=== PATIENT | female | born 1995 | race Caucasian/White ===

== ENCOUNTER 2022-12-14 11:03 | Emergency (ER) | payer OTHER, SELFPAY ==
[2022-12-14 11:04] VITALS: BP 131/86; PULSE 104; RESP 14; TEMP 36.6; O2SAT 100; BMI 25.9
--- NOTE | 2022-12-14 11:25 | CT_ITS ---
STUDY: CT ABDOMEN AND PELVIS WITH CONTRAST REASON FOR EXAM: Female, 27 years old. Abdominal pain RADIATION DOSAGE (If Supplied By Facility): CTDIvol = ( 9.53 ) mGy, DLP = ( 592.82 ) mGycm TECHNIQUE: Transaxial images were obtained through the abdomen and pelvis without oral contrast. 100 ml of Isovue-300 contrast was administered. Sagittal and coronal images were reconstructed. Individualized dose optimization techniques were used for this CT. COMPARISON: No relevant prior comparison study available FINDINGS: LOWER THORAX: The visualized lung bases are clear. The visualized portions of the heart and pericardium are within normal limits. GALLBLADDER / BILE DUCTS: There are no calcified gallstones present. There is no intrahepatic biliary duct dilatation. The common bile duct is normal in caliber. There are no calcified ductal stones. LIVER: The liver is within normal limits. There are no suspicious hepatic lesions. SPLEEN: The spleen is normal in size. PANCREAS: The pancreas is within normal limits. ADRENAL GLANDS: The adrenal glands are within normal limits. KIDNEYS / BLADDER: There is a 2 mm nonobstructing right renal collecting system stone. There are no additional urinary calculi. There is no hydronephrosis. There are no focal renal lesions. The urinary bladder is partially distended and appears grossly unremarkable. STOMACH / BOWEL: Normal visualized stomach. There is no bowel obstruction or inflammation. The appendix is visualized and appears normal. PERITONEUM/RETROPERITONEUM: There is no abdominal or pelvic free air, free fluid or fluid collection. There is no abnormal soft tissue mass identified. There is no abdominal or pelvic lymphadenopathy. VESSELS: The aorta is normal in caliber. The IVC is unremarkable. BONES: There are no destructive osseous lesions. SOFT TISSUES: The visualized soft tissues are within normal limits. CT/Abdomen/Pelvis W IV Cont ONLY IMPRESSION: 2 mm nonobstructing right renal collecting system stone. No additional urinary calculi. No hydronephrosis. No bowel obstruction or inflammation. Normal appendix. No free air, free fluid or fluid collection. Electronically Signed: Dragan Dennis MD at 12:46 EDT ,
[2022-12-14 11:43] LABS: Mucous, Urine 0 SEEN /hpf (<or=2+); Red Blood Cells-Urine 0 SEEN /hpf (0-5); White Blood Cells 0 SEEN /hpf (0-5)
[2022-12-14 11:45] LABS: Absolute Lymphocyte Count 2.26 X10^3/uL (0.83-4.51); Basophil# 0.05 X10^3/uL; Eosinophil# 0.04 X10^3/uL; Eosinophils% 0.8 % (0-5); Hematocrit 43.6 % (37-47); Hemoglobin 14.7 g/dL (12.0-15.0); Lymphocyte # 2.26 X10^3/ul (0.83-4.51); Lymphocyte % 45.2 % (19-41); Mean Corp Hgb Conc 33.7 g/dL (32-36); Mean Corpuscular Hgb 31.1 pg (27.0-32.0); Mean Corpuscular Volume 92.2 fL (81-99); Mean Platelet Vol. 10.9 fl (6.2-12.0); Monocyte# 0.64 X10^3/uL; Monocyte% 12.8 % (0-10); NRBC Flagged by Analyzer 0 % (0-5); Platelet Count 319 K/mm3 (150-450); RBC Distribution Width CV 11.1 % (11.6-14.6); RBC Distribution Width SD 37.8 fl (35.1-43.9); Red Blood Count 4.73 M/mm3 (4.2-5.4)
[2022-12-14] MEDS: Mag Hydrox/Al Hydrox/Simeth 30 ML UDC PO (11:48)
[2022-12-14] MEDS: 0.9% Normal Saline 1,000 ML 1000 ML IV (11:48)
[2022-12-14 11:49] LABS: Color, Urine Yellow (Yellow); Glucose, Dipstick Normal (Normal); Ketone-Dipstick Negative (Negative); Leukocyte Esterase-Dipstick Negative /ul (Negative); Nitrite-Dipstick Negative (Negative); Occult Blood-Urine 25 /ul (Negative); Protein-Dipstick Negative (Negative); Specific Gravity, Urine 1.005 (1.002-1.030); Urine Bilirubin Dipstick Negative (Negative); Urine Clarity Clear (Clear); Urine Urobilinogen Normal (Normal)
[2022-12-14 11:53] LABS: AST(SGOT) 21 U/L (15-37); Alanine Aminotransfer ALT/SGPT 25 U/L (13-56); Albumin, Serum 3.9 g/dL (3.2-5.0); Alkaline Phosphatase 66 U/L (45-117); Anion Gap 6 (5-15); BUN 11 mg/dL (7-18); Calcium,Total 9.2 mg/dL (8.5-10.1); Chloride 105 mmol/L (98-107); Creatinine, Serum 0.65 mg/dL (0.55-1.02); EST Glomerular Filtration Rate 118 mL/min (>60); Est Glom Filt Rate - Afr Amer 142 mL/min (>60); Estimated Creatinine Clearance 108.49 ml/min; Globulin 3.8 g/dL (2.2-4.2); Glucose 92 mg/dL (74-106); Lipase 21 U/L (13-75); Potassium 3.7 mmol/L (3.5-5.1); Protein, Total 7.7 g/dL (6.4-8.2); Sodium Level 137 mmol/L (136-145)
--- NOTE | 2022-12-14 11:59 | EDS_ITS ---
HPI <JOSE DANIEL Rocha - Last Filed: 12/14/22 12:58> History of Present Illness Chief Complaint: Abd Pain Narrative Narrative: Patient is a 27-year-old female with history of kidney disease who takes potassium citrate who presents to the emergency department with 2 days of epigastric pain, generalized abdominal pain. 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 Over the night, the patient continued to have pain, and it radiated to her lower abdomen. Patient states that this morning, she continues to have pain in her epigastric area as generalized pain. She denies any nausea or vomiting however does state to have increased bowel movements which is abnormal for her. She denies any fever or chills. Denies any sick contacts. Denies any recent antibiotic use. PFSH <JOSE DANIEL Rocha - Last Filed: 12/14/22 12:58> [facility] Medical History (Updated 12/14/22 @ 12:57 by JOSE DANIEL Rocha) Distal renal tubular acidosis Rheumatoid arthritis Home Medications famotidine 40 mg tablet (Pepcid) 40 mg PO BID #28 tabs 12/14/22 [Rx Last Taken Unknown] fluticasone propionate 50 mcg/actuation nasal spray,suspension 2 spray intranasal DAILY PRN allergy symptoms 12/14/22 [History Last Taken Unknown] potassium citrate PO 12/14/22 [History Last Taken Unknown] Allergy/AdvReac Type Severity Reaction Status Date / Time doxycycline Allergy Severe Anaphylaxis Verified 12/14/22 11:13 Penicillins Allergy Severe Anaphylaxis Verified 12/14/22 11:13 Social History Smoking Status: Never smoker ROS <JOSE DANIEL Rocha - Last Filed: 12/14/22 12:58> ROS ED ROS Narrative Constitutional: Negative for fever, chills, weight loss, weakness Eyes: Negative for vision loss, vision change, double vision ENT: Negative for any sore throat, ear pain, congestion Cardiovascular: Negative for any chest pain, tightness, palpitations Respiratory: Negative for any cough, sputum production, hemoptysis, dyspnea, dyspnea on exertion, orthopnea Gastrointestinal: Negative for any nausea, vomiting, diarrhea, constipation, blood in stool, blood in vomit. Positive for abdominal pain : Negative for any urinary frequency, dysuria, retention, blood in urine Muscle skeletal: Negative for any muscle joint pain, stiffness, myalgias, a rthralgias, neck pain, back pain Neurological: Negative for any headache, syncope, numbness or tingling, dizziness Skin: Negative for any rashes, lumps, itching, abrasions, lacerations Psychiatric: Negative for any depression, anxiety, stress, suicidal ideation, homicidal ideation Hematologic: Negative for any easy bruising, excessive bruising, easy bleeding Allergies: Negative for any eczema, hives, rash EXAM <JOSE DANIEL Rocha - Last Filed: 12/14/22 12:58> Physical Exam Narrative Exam Narrative: Vital signs reviewed. HEET: Head normocephalic atraumatic, TMs clear bilaterally. Posterior pharynx is clear, moist mucous membranes. Nares clear bilaterally. Neck: Supple with no lymphadenopathy or tenderness. No signs of meningismus, negative jolt sign. Cardiac: Regular rate and rhythm no murmurs gallops or rubs, equal peripheral pulses bilaterally. Respiratory: Lungs clear to auscultation bilaterally. No chest tenderness. Abdomen: Soft, nondistended. No abdominal bruit or pulsatile masses. No hepatosplenomegaly. Positive for pain to the left upper quadrant, right lower quadrant on palpation. No peritoneal signs. Active bowel sounds. Extremities: No peripheral edema, no signs of gross trauma or deformity. Active full range of motion of all extremities. Neuro: Cranial nerves II through XII intact, no focal neurological deficits. Skin: Clean dry and intact with no rash, purpura, petechiae, vesicles or pustules. Backs/flank: No CVA tenderness, no midline spinal tenderness, no deformity. Psych: Normal mood and affect. No SI, HI or acute psychosis. Const Vital Signs: 12/14/22 11:04 Temperature 98 F Temperature Source Temporal Pulse Rate 104 H Respiratory Rate 14 Blood Pressure 131/86 H Blood Pressure Mean 101 Pulse Ox 100 Oxygen Delivery Method Room Air Positive well nourished and well developed General Appearance ED: well developed <Dr. Surinder Camilo, DO - Last Filed: 12/14/22 13:10> Physical Exam Const Vital Signs: 12/14/22 11:04 Temperature 98 F Temperature Source Temporal Pulse Rate 104 H Respiratory Rate 14 Blood Pressure 131/86 H Blood Pressure Mean 101 Pulse Ox 100 Oxygen Delivery Method Room Air MDM <Davidson CummingsJOSE DANIEL - Last Filed: 12/14/22 12:58> [facility] Lab Data Labs: Laboratory Results - last 24 hr 12/14/22 12/14/22 11:30 11:35 WBC 5.0 RBC 4.73 Hgb 14.7 Hct 43.6 MCV 92.2 MCH 31.1 MCHC 33.7 RDW Std Deviation 37.8 RDW Coeff of Effie 11.1 L Plt Count 319 MPV 10.9 Immature Gran % (Auto) 0.200 Neut % (Auto) 40.0 L Lymph % (Auto) 45.2 H Mohave % (Auto) 12.8 H Eos % (Auto) 0.8 Baso % (Auto) 1.0 Absolute Neuts (auto) 2.0 Absolute Lymphs (auto) 2.26 Nucleated RBC % 0 Sodium 137 Potassium 3.7 Chloride 105 Carbon Dioxide 26.0 Anion Gap 6 BUN 11 Creatinine 0.65 Estim Creat Clear Calc 108.49 Est GFR (MDRD) Af Amer 142 Est GFR (MDRD) Non-Af 118 BUN/Creatinine Ratio 17.0 Glucose 92 Calcium 9.2 Total Bilirubin 0.60 AST 21 ALT 25 Alkaline Phosphatase 66 Total Protein 7.7 Albumin 3.9 Globulin 3.8 Albumin/Globulin Ratio 1.0 Lipase 21 Urine Color Yellow Urine Clarity Clear Urine pH 7.0 Ur Specific Winifred 1.005 Urine Protein Negative Urine Glucose (UA) Normal Urine Ketones Negative Urine Occult Blood 25 H Urine Nitrite Negative Urine Bilirubin Negative Urine Urobilinogen Normal Ur Leukocyte Esterase Negative Urine RBC 0 SEEN Urine WBC 0 SEEN Ur Squamous Epith Cells 0-5 SEEN Urine Bacteria 1+ Urine Mucus 0 SEEN Urine Test Negative Radiography Diagnostic Testing: Clinical Impression(s) from Imaging Studies Abdomen/Pelvis CT 12/14/22 11:25 IMPRESSION: 2 mm nonobstructing right renal collecting system stone. No additional urinary calculi. No hydronephrosis. No bowel obstruction or inflammation. Normal appendix. No free air, free fluid or fluid collection. Electronically Signed: Dragan Dennis MD at 12:46 EDT , Treatment and Re-Evaluation :: Patient appears generally well, patient appears nontoxic, vital signs are stable. Patient presents to the emergency department for concern of abdominal pain. Physical examination shows some pain on palpation. Patient received abd ominal work-up, labs, CT scan of the abdomen pelvis. Patient was given GI cocktail, as well as Toradol. Differential diagnosis includes acute pancreatitis, acute cholecystitis, appendicitis, gastritis, gastroenteritis. Patient looks nontoxic, no peritoneal signs. Patient appears generally well, patient's labs were gross unremarkable, negative lipase. No transaminitis. Patient's urinalysis negative for infection, patient is not . Patient's abdomen pelvis CT scan shows a 2 mm nonobstructing right renal collecting system stone. No additional urinary calculi. No hydronephrosis. No bowel obstruction or inflammation, no appendicitis. No free fluid or free fluid collection. At this time, this is a negative examination. Patient likely suffering from gastritis. Patient will be placed on Pepcid for 2 weeks. She is instructed to decrease any spicy foods. She will follow-up outpatient as needed. All questions answered, patient stable for discharge <Dr. Surinder Camilo, DO - Last Filed: 12/14/22 13:10> [facility] Narrative Medical decision making narrative: I have personally performed a face to face assessment of the patient and have reviewed the AURE Note. I performed a substantive portion of the visit including all aspects of the following. My moe findings include: History: Patient presents with abdominal pain that began yesterday. Patient states she was at work and she bent over. Patient states that when she stood up she felt some pain in her epigastric area. Patient states that later last evening moved to her right lower abdomen. Patient states that today when she woke up her pain was back in the epigastric area and upper abdomen. Patient denies any nausea or vomiting. Patient denies any fevers or chills. Patient denies any diarrhea or constipation. Exam: Vital signs are stable. Patient is afebrile. Patient is in no acute distress. Oral mucosa is pink and moist. Neck is supple. Trachea is midline. There is no JVD. Heart was regular rate and rhythm. Lungs are clear and equal bilaterally. Abdomen is soft. Bowel sounds are normal. There are some mild tenderness over the epigastric area. There is no rebound or guarding noted. There is no tenderness over the right lower quadrant. There is no McBurney's point tenderness. Cranial nerves II through XII are intact. There are no focal motor or sensory deficits noted. Medical Decision Making: Differential diagnosis includes gastritis, peptic ulcer disease, colitis, pancreatitis, appendicitis, urinary tract infection, , and pyelonephritis. CBC will be obtained to assess for leukocytosis and anemia. Comprehensive metabolic profile will be obtained to assess for hepatic function, renal function, and electrolyte abnormality. Urinalysis will be obtained to assess for urinary tract infection and hematuria. Lipase will be obtained to assess for pancreatitis. Urine hCG will be obtained to assess for . CT scan of the abdomen pelvis will be obtained to assess for bowel obstruction, perforation, and appendicitis. Patient was given IV fluids. Patient was given a GI cocktail. CBC was reviewed and was within normal limits. Comprehensive Bolick profile was reviewed and was within normal limits. Lipase was reviewed and was normal. Urinalysis was reviewed. There is no evidence of urinary tract infection or hematuria. Urine hCG was reviewed and was negative. CT scan of the abdomen and pelvis was obtained. There is a 2 mm right renal calculus but there is no ureteral calculus noted. There is no evidence of obstruction. There is no free air or free fluid noted. The appendix was visualized and is normal. This was interpreted by the radiologist and was also independently reviewed by myself. Patient was feeling better on reevaluation. Patient was advised of her findings. Patient was instructed to drink plenty of fluids. Patient was given a prescription for Pepcid. Patient was instructed to follow-up with her primary care physician in 5 to 7 days. Patient was instructed to take Tylenol as needed for pain. Patient understood and was agreeable with plan. All questions were answered. Lab Data Labs: Laboratory Results - last 24 hr 12/14/22 12/14/22 11:30 11:35 WBC 5.0 RBC 4.73 Hgb 14.7 Hct 43.6 MCV 92.2 MCH 31.1 MCHC 33.7 RDW Std Deviation 37.8 RDW Coeff of Effie 11.1 L Plt Count 319 MPV 10.9 Immature Gran % (Auto) 0.200 Neut % (Auto) 40.0 L Lymph % (Auto) 45.2 H Mohave % (Auto) 12.8 H Eos % (Auto) 0.8 Baso % (Auto) 1.0 Absolute Neuts (auto) 2.0 Absolute Lymphs (auto) 2.26 Nucleated RBC % 0 Sodium 137 Potassium 3.7 Chloride 105 Carbon Dioxide 26.0 Anion Gap 6 BUN 11 Creatinine 0.65 Estim Creat Clear Calc 108.49 Est GFR (MDRD) Af Amer 142 Est GFR (MDRD) Non-Af 118 BUN/Creatinine Ratio 17.0 Glucose 92 Calcium 9.2 Total Bilirubin 0.60 AST 21 ALT 25 Alkaline Phosphatase 66 Total Protein 7.7 Albumin 3.9 Globulin 3.8 Albumin/Globulin Ratio 1.0 Lipase 21 Urine Color Yellow Urine Clarity Clear Urine pH 7.0 Ur Specific Winifred 1.005 Urine Protein Negative Urine Glucose (UA) Normal Urine Ketones Negative Urine Occult Blood 25 H Urine Nitrite Negative Urine Bilirubin Negative Urine Urobilinogen Normal Ur Leukocyte Esterase Negative Urine RBC 0 SEEN Urine WBC 0 SEEN Ur Squamous Epith Cells 0-5 SEEN Urine Bacteria 1+ Urine Mucus 0 SEEN Urine Test Negative Radiography Diagnostic Testing: Clinical Impression(s) from Imaging Studies Abdomen/Pelvis CT 12/14/22 11:25 IMPRESSION: 2 mm nonobstructing right renal collecting system stone. No additional urinary calculi. No hydronephrosis. No bowel obstruction or inflammation. Normal appendix. No free air, free fluid or fluid collection. Electronically Signed: Dragan Dennis MD at 12:46 EDT , Discharge Plan Triage Chief Complaint: Abd Pain ED Midlevel Provider: Davidson Cummings ED Provider: Surinder Camilo Dx/Rx/DC Orders Clinical Impression: Gastritis, Abdominal pain Instructions: Abdominal Pain, ED Gastritis (Adult) Prescriptions: New famotidine [Pepcid] 40 mg tablet 40 mg PO BID Qty: 28 0RF No Action potassium citrate PO fluticasone propionate 50 mcg/actuation spray,suspension 2 spray intranasal DAILY PRN (Reason: allergy symptoms) Rx Instructions: administer into each nostril Activity Restrictions/Additional Instructions: Please follow-up outpatient. Disposition Disposition: Home, Self Care
[2022-12-14 12:02] LABS: Bacteria 1+ /hpf (None Seen); Internal QC Validated? YES +Cl - CLEAR BKGD; Pregnancy, Urine Negative Negative; Squamous Epithelial Cells - UA 0-5 SEEN /hpf (5-10)
== END 2022-12-14 13:15 | disposition home or self-care (01) ==
PROVIDERS: Nurse Practitioner; Emergency Provider Emergency Medicine; Visit Provider Emergency Medicine
DX: R10.9 Unspecified abdominal pain (principal); K29.70 Gastritis, unspecified, without bleeding; N28.9 Disorder of kidney and ureter, unspecified; Z79.899 Other long term (current) drug therapy
CPT/HCPCS: 74177; 80053; 81001; 81025; 83690; 85025; 96360; 99284; J7030; Q9967; A4216

== ENCOUNTER → 2024-11-03 | Outpatient (CLI) | payer OTHER, SELFPAY ==
--- NOTE | 2024-11-03 12:29 | MRI_ITS ---
PROCEDURE: BRAIN W/WO CONTRAST 11/03/2024 REASON FOR EXAM: DIZZINESS TECHNIQUE: BRAIN W/WO CONTRAST Multiplanar and multisequence images were obtained. CONTRAST: Clariscan VOLUME: 15 mL COMPARISON: None FINDINGS: No diffusion restriction to suggest acute/subacute ischemia. No evidence of acute intracranial hemorrhage, midline shift or mass effect. Cerebral volume is maintained. No hydrocephalus. No parenchymal signal abnormalities. No cerebellopontine angle mass. 7th, 8th and 5th cranial nerve complexes are within normal limits. No pathologic enhancement. Minimal bilateral maxillary mucosal thickening. Globes are intact. MRI/Brain W/WO Contrast IMPRESSION: Normal brain MRI. Reading Location: [facility]
--- NOTE | 2024-11-03 12:29 | MRI_ITS ---
PROCEDURE: BRAIN W/WO CONTRAST 11/03/2024 REASON FOR EXAM: DIZZINESS TECHNIQUE: BRAIN W/WO CONTRAST Multiplanar and multisequence images were obtained. CONTRAST: Clariscan VOLUME: 15 mL COMPARISON: None FINDINGS: No diffusion restriction to suggest acute/subacute ischemia. No evidence of acute intracranial hemorrhage, midline shift or mass effect. Cerebral volume is maintained. No hydrocephalus. No parenchymal signal abnormalities. No cerebellopontine angle mass. 7th, 8th and 5th cranial nerve complexes are within normal limits. No pathologic enhancement. Minimal bilateral maxillary mucosal thickening. Globes are intact. MRI/Brain W/WO Contrast IMPRESSION: Normal brain MRI. Reading Location: [facility]
== END | disposition home or self-care (01) ==
PROVIDERS: Referring Provider Otolaryngology; Visit Provider Otolaryngology
DX: R42 Dizziness and giddiness (principal)
CPT/HCPCS: 70553; A9575

== ENCOUNTER 2024-11-27 03:51 | Emergency (ER) | payer OTHER, SELFPAY ==
[2024-11-27 03:53] VITALS: BP 134/92; PULSE 140; RESP 16; TEMP 36.6; O2SAT 97; BMI 26.9
[2024-11-27 04:09] VITALS: PULSE 116
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
[2024-11-27 04:20] VITALS: BP 104/75; PULSE 104; RESP 16; TEMP 36.6; O2SAT 99
--- OUTSIDE RECORDS SUMMARY | 2024-11-27 04:28 | XMS RPT_ITS | CCD ---
Author Organization [facility] Care Team Providers Care Nut Tightener Name Role Phone Unavailable Primary Care Provider DIOGENES Redding Attending Unavailable DIOGENES AVENDAÑO Primary Care Unavailable DIOGENES AVENDAÑO Attending Unavailable DIOGENES AVENDAÑO Primary Care Unavailable Unavailable Primary Care Provider Joseline AVENDAÑO MD, DIOGENES Holloway Primary Care Physician [phone] DIOGENES AVENDAÑO MD Attending Unavailable KATERYNA BLACKWELL, DIOGENES Holloway Primary Care Unavailable Monica BLACKWELL, Dr. Bell Attending Provider Dr. Ray Anderson MD Referring Provider DIOGENES AVENDAÑO Primary Care Provider [phone] KOURTNEY DE LA CRUZ Primary Care Unavailable Ray Anderson Referring Ray Chauhan Attending Joseline butcher Allergies Allergy Classification Reported Allergen(s) Allergy Type Date of Onset Reaction(s) Facility (8 sources) Doxycycline; Translations: [DOXYCYCLINE] Drug Allergy 7 Other: See Comments [facility] (3 sources) Penicillins; Translations: [PENICILLINS] Allergy to substance 6 Anaphylaxis [facility] (5 sources) Penicillins Propensity to adverse reactions to drug 6 Unknown [facility] (1 source) Penicillin; Translations: [penicillin] Drug Allergy [facility] (1 source) Doxycycline Drug Allergy 3 [facility] (1 source) Penicillins Drug allergy (disorder) 3 [facility] Medications Current Medications Medication Drug Class(es) Dates Sig (Normalized) Sig (Original) escitalopram 5 mg oral tablet (1 source) Serotonin Reuptake Inhibitor Start: 09-21-2024 End: 11-20-2024 Lexapro 5 mg oral tablet Dose : 5 mg = 1 tab(s), Oral, qDay, # 30 tab(s), 1 Refill(s), Pharmacy: [facility]/pharmacy #[id number], 162.6, cm, 09/21/24 14:14:00 EDT, Height, kg, 09/21/24 14:14:00 EDT, Dosing Weight Start Date: 09/21/24 Stop Date: 11/20/24 Status: Ordered Quantity: 30.0 Unit: tab(s) Repeat number: 2 Ethinyl Estradiol / Norethindrone (5 sources) Estrogen Start: 05-20-2023 take 1 tablet by mouth once daily .09/17, 21, 1.5-30 mg-mcg TAKE 1 TABLET BY MOUTH EVERY DAY CONTINUOUSLY *NO WEEK OFF* 05/20/2023 Active Start: 05-20-2023 take 1 tablet by stanley th once daily , 21, 1.5-30 mg-mcg TAKE 1 TABLET BY MOUTH EVERY DAY CONTINUOUSLY *NO WEEK OFF* 0 05/20/2023 Active Start: 12-28-2018 take 1 tablet by stanley th once daily .09/17 oral tablet tab(s), Oral, qDay, 0 Refill(s) Start Date: 12/28/18 Status: Ordered Repeat number: 1 Comment on above: TAKE 1 TABLET BY STANLEY TH EVERY DAY CONTINUOUSLY *NO WEEK OFF* famotidine 40 mg oral tablet (2 sources) Histamine-2 Receptor Antagonist Start: 12-15-19 take 1 tablet by mouth twice daily Famotidine (Pepcid) 40 mg tablet Active 40 mg PO TWICE A DAY 0 December 14, 2022 12:00am fluticasone propionate 0.05 mg/actuat metered dose nasal spray (3 sources) Corticosteroid Start: 09-02-19 End: 08-28-19 26 take 1 dose nasal route once daily in the morning Flonase 50 mcg/inh nasal spray Dose = 1 spray(s), Nostril, each, qAM, # 3 EA, 3 Refill(s), Pharmacy: [facility], 160, cm, 12/09/23 11:13:00 EDT, Height, kg, 12/09/23 11:13:00 EDT, Dosing Weight Start Date: 09/01/24 Stop Date: 08/27/25 Status: Ordered Quantity: 3.0 Unit: EA Repeat number: 4 Start: 12-14-2022 Fluticasone Pr opionate 50 mcg/actuation spray,suspension Active 2 NMA INTRANASAL DAILY as needed for allergy symptoms December 14, 2022 12:00am administer into each nostril Start: 12-14-2022 take 1 spray(s) nasa l route once daily Fluticasone Propionate Active 2 SPRAY INTRANASAL DAILY December 14, 2022 12:00am administer into each nostril folic acid 1 mg oral tablet (5 sources) Start: 06-28-2016 take 1 tablet by mouth once daily folic acid 1 mg tablet Take 1 tablet by mouth once daily. 90 tablet 06/28/2016 Active Comment on above: Take 1 tablet by [facility] once daily. lisdexamfetamine dimesylate 30 mg oral capsule (5 sources) Central Nervous System Stimulant lisdexamfetamine (VYVANSE) 30 mg capsule Take 40 mg by mouth once daily. Active Comment on above: Take 40 mg by mouth once daily. methotrexate 2.5 mg oral tablet (5 sources) Folate Analog Metabolic Inhibitor Start: 06-28-2016 take 8 tablets by mouth every week methotrexate 2.5 mg tablet Take 8 tablets by mouth once each week. 96 tablet 06/28/2016 Active Comment on above: Take 8 tablets by [facility] once each week. potassium citrate 10 meq extended release oral tablet (7 sources) Start: 09-01-2024 End: 08-27-2025 potassium citrate 10 mEq oral tablet, extended release Dose : 20 mEq = 2 tab(s), Oral, qDay, # 180 tab(s), 3 Refill(s), Pharmacy: [facility], 160, cm, 12/09/23 11:13:00 EDT, Height, kg, 12/09/23 11:13:00 EDT, Dosing Weight Start Date: 09/01/24 Stop Date: 08/27/25 Status: Ordered Quantity: 180.0 Unit: tab(s) Repeat number: 4 Start: 05-09-2023 take 2 tablets by mouth once p otassium citrate ER (UROCIT-K) 10 mEq (1,080 mg) Take 2 tablets by mouth every afternoon. 05/09/2023 Active Start: 12-14-2022 potassium citr ate Active PO December 14, 2022 12:00am Comment on above: Take 2 tablets by mo [facility] every afternoon. Completed/Discontinued Medications Medication Drug Class(es) Dates Sig (Normalized) Sig (Original) hydroxychloroquine sulfate 200 mg oral tablet (10 sources) Antimalarial, Antirheumatic Agent Start: 7 take 1 tablet by mouth twice daily hydroxychloroquine (PLAQUENIL) 200 mg tablet Take 1 tablet by mouth twice daily. 180 tablet 0 06/28/2016 Active Comment on above: Take 200 mg by mouth twice daily. Take 1 tablet by stanley twice daily. Problems Active Problems Problem Classification Problem Date Documented Date Episodic/Chronic Abdominal pain (3 sources) Abdominal pain; Translations: [Unspecified abdominal pain] 12-14-2022 Episodic Anxiety disorders (1 source) Posttraumatic stress disorder 09-21-2024 Chronic Calculus of urinary tract (1 source) Kidney stone 12-28-2018 Episodic Conditions associated with dizziness or vertigo (2 sources) Dizziness; Translations: [Dizziness and giddiness] Onset: 11-08-2024 12-07-2023 Episodic Gastritis and duodenitis (2 sources) Gastritis; Translations: [Gastritis, unspecified, without bleeding] 12-14-2022 Episodic Immunizations and screening for infectious disease (5 sources) Anti-nuclear factor positive; Translations: [Other specified abnormal immunological findings in serum] 12-01-2015 Episodic Mood disorders (1 source) Depressive disorder 09-21-2024 Chronic Other aftercare (5 sources) jail methotrexate user; Translations: [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] 12-01-2015 Episodic Other diseases of kidney and ureters (2 sources) 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; Translations: [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] Onset: 02-28-2023 Chronic Other diseases of kidney and ureters (1 source) 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 Other non-traumatic joint disorders (5 sources) Hand joint pain; Translations: [Pain in joints of unspecified hand] 12-01-2015 Episodic Other upper respiratory infections (3 sources) Acute upper respiratory infection; Translations: [Acute upper respiratory infection, unspecified] 06-05-2023 Episodic Rheumatoid arthritis and related disease (11 sources) Rheumatoid arthritis; Translations: [Rheumatoid arthritis, unspecified] 12-01-2015 Chronic Past or Other Problems Problem Classification Problem Date Documented Da te Episodic/Chronic Cardiac dysrhythmias (2 sources) Palpitations; Translations: [Palpitations] Onset: 02-28-2023 Episodic Results Test Name Value Interpretation Reference Range Facility Brain W/WO Contraston 2024 Brain W/WO Contrast [facility] Imaging Services [address] [place] [address] Brain W/WO Contrast MR#: [id number] Acct: [id number] Name: HOA SOFIA Rep #: [id number] : 1995 F 29 From: Luis Armando Thompson PCP: DIOGENES AVENDAÑO Status: REG CLI Study: Brain W/WO Contrast Date of Exam: 11/03/24 Exam# [id number] Ordering Dr: Ray Anderson MD PROCEDURE: BRAIN W/WO CONTRAST 11/03/2024 REASON FOR EXAM: DIZZINESS TECHNIQUE: BRAIN W/WO CONTRAST Multiplanar and multisequence images were obtained. CONTRAST: Clariscan VOLUME: 15 mL COMPARISON: None FINDINGS: No diffusion restriction to suggest acute/subacute ischemia. No evidence of acute intracranial hemorrhage, midline shift or mass effect. Cerebral volume is maintained. No hydrocephalus. No parenchymal signal abnormalities. No cerebellopontine angle mass. 7th, 8th and 5th cranial nerve complexes are within normal limits. No pathologic enhancement. Minimal bilateral maxillary mucosal thickening. Globes are intact. MRI/Brain W/WO Contrast IMPRESSION: Normal brain MRI. Reading Location: [facility] CC: Dr. Ray Anderson MD; DIOGENES AVENDAÑO Quality Head: Signed Normal [facility] Magnetic resonance imaging r eportOrdered By: Luis Armando Floyd on 11-03-2024 Study report [facility] Imaging Services [address] [place] [address] Brain W/WO Contrast MR#: [id number] Acct: [id number] Name: HOA SOFIA Rep #: [id number] : 1995 F 29 From: Murray Floyd DO PCP: DIOGENES AVENDAÑO Status: REG CLI Study:Brain W/WO Contrast Date of Exam: 11/03/24 Exam# [id number] Ordering Dr: Ray Anderson MD PROCEDURE: BRAIN W/WO CONTRAST 11/03/2024 REASON FOR EXAM: DIZZINESS TECHNIQUE: BRAIN W/WO CONTRAST Multiplanar and multisequence images were obtained. CONTRAST: Clariscan VOLUME: 15 mL COMPARISON: None FINDINGS: No diffusion restriction to suggest acute/subacute ischemia. No evidence of acute intracranial hemorrhage, midline shift or mass effect. Cerebral volume is maintained. No hydrocephalus. No parenchymal signal abnormalities. No cerebellopontine angle mass. 7th, 8th and 5th cranial nerve complexes are within normal limits. No pathologic enhancement. Minimal bilateral maxillary mucosal thickening. Globes are intact. MRI/Brain W/WO Contrast IMPRESSION: Normal brain MRI. Reading Location: [facility] CC: Dr. Ray Anderson MD; DIOGENES AVENDAÑO ~ Quality Head: Signed [facility] .Auto Diffon 09-23-2024 Basophil, Absolute 0.0 10 3/mcL Normal 0.0-0.3 [facility] Comment on above: Performed By: #### A DIFF, CMP, CBC, GFR, LIPID, ANEU, TSH #### [address] [address] Basophils/100 WBC (Bld) 0.8 % Normal 0.0-2.5 [facility] Comment on above: Performed By: #### A DIFF, CMP, CBC, GFR, LIPID, ANEU, TSH #### [address] [address] Eosinophil, Absolute 0.0 10 3/mcL Normal 0.0-0.7 [facility] Comment on above: Performed By: #### A DIFF, CMP, CBC, GFR, LIPID, ANEU, TSH #### [address] [address] Eosinophils/100 WBC (Bld) 0.7 % Normal 0.0-6.0 [facility] Comment on above: Performed By: #### A DIFF, CMP, CBC, GFR, LIPID, ANEU, TSH #### [address] [address] Lymphocyte, Absolute 2.7 10 3/mcL Normal 0.9-4.3 [facility] Comment on above: Performed By: #### A DIFF, CMP, CBC, GFR, LIPID, ANEU, TSH #### [address] [address] Lymphocytes/100 WBC (Bld) 46.2 % High 20.0-40.0 [facility] Comment on above: Performed By: #### A DIFF, CMP, CBC, GFR, LIPID, ANEU, TSH #### [address] [address] Monocyte, Absolute 0.5 10 3/mcL Normal 0.1-1.4 [facility] Comment on above: Performed By: #### A DIFF, CMP, CBC, GFR, LIPID, ANEU, TSH #### [address] [address] Monocytes/100 WBC (Bld) 7.6 % Normal 2.0-13.0 [facility] Comment on above: Performed By: #### A DIFF, CMP, CBC, GFR, LIPID, ANEU, TSH #### [address] [address] Neutrophils/100 WBC (Bld) 44.7 % Low 50.0-75.0 [facility] Comment on above: Performed By: #### A DIFF, CMP, CBC, GFR, LIPID, ANEU, TSH #### [address] [address] .GFRon 09-23-2024 GFR/1.73 sq M.predicted among non-blacks MDRD (S/P/Bld) [Vol rate/Area] mL/min/{1.73_m2} Normal [facility] Comment on above: Result Comment: Stages of Chronic Kidney Disease (CKD) Stage Description eGFR(ml/min/1.73 sq.m.) CKD 1 Normal kidney function or >=90 normal kindney function with possible kidney damage (ex. Proteinuria) CKD 2 Kidney damage with mild loss 60-89 of kidney function CKD 3a Mild to moderate loss of kidney 45-59 function CKD 3b Moderate to severe loss of 30-44 of kindey function CKD 4 Severe loss of kidney function 15-29 CKD 5 Kidney failure <15 Note: (go live 2024) the eGFR calculation was updated to the 2020 CKD-EPI creatinine equation without a race factor to calculate the eGFR results. Performed By: #### A DIFF, CMP, CBC, GFR, LIPID, ANEU, TSH #### [place] [address] .NEUABSon 09-23-2024 Neutrophil, Absolute 2.7 10 3/mcL Normal 2.3-8.1 [facility] Comment on above: Performed By: #### A DIFF, CMP, CBC, GFR, LIPID, ANEU, TSH #### [place] [address] CBCon 09-23-2024 Erythrocyte distribution width (RBC) [Ratio] 12.1 % Normal 11.5-15.5 [facility] Comment on above: Performed By: #### A DIFF, CMP, CBC, GFR, LIPID, ANEU, TSH #### [place] [address] Hematocrit (Bld) [Volume fraction] 41.8 % Normal 34.0-46.0 [facility] Comment on above: Performed By: #### A DIFF, CMP, CBC, GFR, LIPID, ANEU, TSH #### [place] [address] Hgb 14.4 G/dL Normal 12.0-16.0 [facility] Comment on above: Performed By: #### A DIFF, CMP, CBC, GFR, LIPID, ANEU, TSH #### [place] [address] MCH (RBC) [Entitic mass] 31.3 pg Normal 27.0-33.0 [facility] Comment on above: Performed By: #### A DIFF, CMP, CBC, GFR, LIPID, ANEU, TSH #### [place] [address] MCHC 34.4 G/dL Normal 32.0-36.0 [facility] Comment on above: Performed By: #### A DIFF, CMP, CBC, GFR, LIPID, ANEU, TSH #### [address] [address] MCV (RBC) [Entitic vol] 91.0 fL Normal 80.0-99.0 [facility] Comment on above: Performed By: #### A DIFF, CMP, CBC, GFR, LIPID, ANEU, TSH #### [address] [address] Platelet 255 10 3/mcL Normal 150-450 [facility] Comment on above: Performed By: #### A DIFF, CMP, CBC, GFR, LIPID, ANEU, TSH #### [address] [address] Platelet mean volume (Bld) [Entitic vol] 9.5 fL Normal 6.6-10.5 [facility] Comment on above: Performed By: #### A DIFF, CMP, CBC, GFR, LIPID, ANEU, TSH #### [address] [address] RBC 4.59 10 6/mcL Normal 4.10-5.30 [facility] Comment on above: Performed By: #### A DIFF, CMP, CBC, GFR, LIPID, ANEU, TSH #### [address] [address] WBC 5.9 10 3/mcL Normal 4.5-10.8 [facility] Comment on above: Performed By: #### A DIFF, CMP, CBC, GFR, LIPID, ANEU, TSH #### [address] [address] CMPon 09-23-2024 Albumin Level 3.7 G/dL Normal 3.5-5.0 [facility] Comment on above: Performed By: #### A DIFF, CMP, CBC, GFR, LIPID, ANEU, TSH #### [address] [address] Albumin/Globulin [Mass ratio] 1.0 {ratio} Low 1.1-2.5 [facility] Comment on above: Performed By: #### A DIFF, CMP, CBC, GFR, LIPID, ANEU, TSH #### [address] [address] ALP [Catalytic activity/Vol] 65 U/L Normal 40-135 [facility] Comment on above: Performed By: #### A DIFF, CMP, CBC, GFR, LIPID, ANEU, TSH #### [place] [address] ALT [Catalytic activity/Vol] 19 U/L Normal 14-59 [facility] Comment on above: Performed By: #### A DIFF, CMP, CBC, GFR, LIPID, ANEU, TSH #### [place] [address] AST [Catalytic activity/Vol] 17 U/L Normal 10-40 [facility] Comment on above: Performed By: #### A DIFF, CMP, CBC, GFR, LIPID, ANEU, TSH #### [place] [address] Bili Total 0.4 mg/dL Normal 0.2-1.0 [facility] Comment on above: Result Comment: Use of this assay is not recommended for patients undergoing treatment with eltrombopag due to the potential for falsely elevated results. Performed By: #### A DIFF, CMP, CBC, GFR, LIPID, ANEU, TSH #### [address] [address] BUN/Creatinine Ratio 13 ratio Normal 7-27 [facility] Comment on above: Performed By: #### A DIFF, CMP, CBC, GFR, LIPID, ANEU, TSH #### [place] [address] Calcium [Mass/Vol] 9.0 mg/dL Normal 8.4-10.2 [facility] Comment on above: Performed By: #### A DIFF, CMP, CBC, GFR, LIPID, ANEU, TSH #### [address] [address] Chloride [Moles/Vol] 103 mmol/L Normal 98-107 [facility] Comment on above: Performed By: #### A DIFF, CMP, CBC, GFR, LIPID, ANEU, TSH #### [address] [address] CO2 [Moles/Vol] 24 mmol/L Normal 22-29 [facility] Comment on above: Performed By: #### A DIFF, CMP, CBC, GFR, LIPID, ANEU, TSH #### [address] [address] Creatinine [Mass/Vol] 0.60 mg/dL Normal 0.51-0.95 [facility] Comment on above: Performed By: #### A DIFF, CMP, CBC, GFR, LIPID, ANEU, TSH #### [address] [address] Electrolyte Balance 10.0 mEq/L Normal 4.0-15.0 [facility] Comment on above: Performed By: #### A DIFF, CMP, CBC, GFR, LIPID, ANEU, TSH #### [address] [address] Globulin 3.8 G/dL Normal 2.7-4.4 [facility] Comment on above: Performed By: #### A DIFF, CMP, CBC, GFR, LIPID, ANEU, TSH #### [address] [address] Glucose [Mass/Vol] 91 mg/dL Normal 70-105 [facility] Comment on above: Performed By: #### A DIFF, CMP, CBC, GFR, LIPID, ANEU, TSH #### [address] [address] Potassium [Moles/Vol] 4.6 mmol/L Normal 3.5-5.1 [facility] Comment on above: Performed By: #### A DIFF, CMP, CBC, GFR, LIPID, ANEU, TSH #### [place] [address] Sodium [Moles/Vol] 137 mmol/L Normal 136-145 [facility] Comment on above: Performed By: #### A DIFF, CMP, CBC, GFR, LIPID, ANEU, TSH #### [place] [address] [place], [place] [address] Total Protein 7.5 G/dL Normal 6.4-8.2 [facility] Comment on above: Performed By: #### A DIFF, CMP, CBC, GFR, LIPID, ANEU, TSH #### [place] [address] [place], [place] [address] Urea nitrogen [Mass/Vol] 8 mg/dL Normal 7-18 [facility] Comment on above: Performed By: #### A DIFF, CMP, CBC, GFR, LIPID, ANEU, TSH #### [place] [address] [place], [place] [address] LABORATORYOrdered By: SYSTEM SYSTEM on 09-23-2024 Albumin BCP dye [Mass/Vol] 3.7 G/dL Normal 3.5 - 5.0 G/dL AO ADM SS Albumin/Globulin [Mass ratio] 1.0 {ratio} Low 1.1 - 2.5 ratio AO ADM SS ALP [Catalytic activity/Vol] 65 U/L Normal 40 - 135 U/L AO ADM SS ALT With P-5'-P [Catalytic activity/Vol] 19 U/L Normal 14 - 59 U/L AO ADM SS AST With P-5'-P [Catalytic activity/Vol] 17 U/L Normal 10 - 40 U/L AO ADM SS Basophils (Bld) [#/Vol] 0.0 103/mcL Normal 0.0 - 0.3 10^3/mcL AO Workflow SS Basophils/100 WBC (Bld) 0.8 % Normal 0.0 - 2.5 % AO Workflow SS Bilirubin [Mass/Vol] 0.4 mg/dL Normal 0.2 - 1 .0 mg/dL AO ADM SS Comment on above: Interpretive Data: U se of this assay is not recommended for patients undergoing treatment with eltrombopag due to the potential for falsely elevated results. Calcium [Mass/Vol] 9.0 mg/dL Normal 8.4 - 10. 2 mg/dL AO ADM SS Chloride [Moles/Vol] 103 mmol/L Normal 98 - 10 7 mmol/L AO ADM SS CO2 [Moles/Vol] 24 mmol/L Normal 22 - 29 mmol/L AO ADM SS Creatinine [Mass/Vol] 0.60 mg/dL Normal 0.51 - 0.95 mg/dL AO ADM SS Electrolyte Balance 10.0 mEq/L Normal 4.0 - 15 .0 mEq/L AO ADM SS Eosinophil, Absolute 0.0 103/mcL Normal 0.0 - 0 .7 10^3/mcL AO Workflow SS Eosinophils/100 WBC (Bld) 0.7 % Normal 0.0 - 6.0 % AO Workflow SS Erythrocyte distribution width (RBC) [Ratio] 12.1 % Normal 11.5 - 15.5 % AO Workflow SS Estimated Glomerular Filtration Rate ml/min/1.73sqm Invalid Interpretation Code AO Chemistry S Comment on above: Interpretive Data: Stages of Chronic Kidney Disease (CKD) Stage Description eGFR(ml/min/1.73 sq.m.) CKD 1 Normal kidney function or >=90 normal kindney function with possible kidney damage (ex. Proteinuria) CKD 2 Kidney damage with mild loss 60-89 of kidney function CKD 3a Mild to moderate loss of kidney 45-59 function CKD 3b Moderate to severe loss of 30-44 of kindey function CKD 4 Severe loss of kidney function 15-29 CKD 5 Kidney failure <15 Note: (go live 2024) the eGFR calculation was updated to the 2020 CKD-EPI creatinine equation without a race factor to calculate the eGFR results. Globulin 3.8 G/dL Normal 2.7 - 4.4 G/dL AO ADM SS Glucose [Mass/Vol] 91 mg/dL Normal 70 - 105 mg/dL AO ADM SS Hematocrit (Bld) [Volume fraction] 41.8 % Normal 34.0 - 46.0 % AO Workflow SS Hemoglobin (Bld) [Mass/Vol] 14.4 G/dL Normal 12.0 - 16.0 G/dL AO Workflow SS Lymphocytes (Bld) [#/Vol] 2.7 103/mcL Normal 0.9 - 4.3 10^3/mcL AO Workflow SS Lymphocytes/100 WBC (Bld) 46.2 % High 20.0 - 40.0 % AO Workflow SS MCH (RBC) [Entitic mass] 31.3 pg Normal 27.0 - 33.0 pg AO Workflow SS MCHC 34.4 G/dL Normal 32.0 - 36.0 G/dL AO Workflow SS MCV (RBC) [Entitic vol] 91.0 fL Normal 80.0 - 99.0 fL AO Workflow SS Monocytes (Bld) [#/Vol] 0.5 103/mcL Normal 0.1 - 1.4 10^3/mcL AO Workflow SS Monocytes/100 WBC (Bld) 7.6 % Normal 2.0 - 13.0 % AO Workflow SS Neutrophils (Bld) [#/Vol] 2.7 103/mcL Normal 2.3 - 8.1 10^3/mcL AO Workflow SS Neutrophils/100 WBC (Bld) 44.7 % Low 50.0 - 75.0 % AO Workflow SS Platelet mean volume (Bld) [Entitic vol] 9.5 fL Normal 6.6 - 10.5 fL AO Workflow SS Platelets (Bld) [#/Vol] 255 103/mcL Normal 150 - 450 10^3/mcL AO Workflow SS Potassium [Moles/Vol] 4.6 mmol/L Normal 3.5 - 5.1 mmol/L AO ADM SS Protein [Mass/Vol] 7.5 G/dL Normal 6.4 - 8.2 G/dL AO ADM SS RBC (Bld) [#/Vol] 4.59 106/mcL Normal 4.10 - 5.3 0 10^6/mcL AO Workflow SS Sodium [Moles/Vol] 137 mmol/L Normal 136 - 145 mmol/L AO ADM SS TSH Qn 1.27 m[IU]/L Normal 0.36 - 3.74 mcIU/mL AO ADM SS Urea nitrogen [Mass/Vol] 8 mg/dL Normal 7 - 18 mg/dL AO ADM SS Urea nitrogen/Creatinine [Mass ratio] 13 ratio Normal 7 - 27 ratio AO ADM SS WBC (Bld) [#/Vol] 5.9 103/mcL Normal 4.5 - 10.8 10^3/mcL AO Workflow SS LABORATORYOrdered By: Eric Hurt on 09-23-2024 Cholesterol [Mass/Vol] 220 mg/dL High 0 - 2 00 mg/dL AO ADM SS Comment on above: Interpretive Data: C holesterol Reference Interval: Less than 200 Desirable 200-239 Borderline high risk 240 and above High risk Cholesterol in HDL [Mass/Vol] 54 mg/dL Normal 40 - 60 mg/dL AO ADM SS Cholesterol in LDL [Mass/Vol] 134 mg/dL High 0 - 130 mg/dL AO ADM SS Triglyceride [Mass/Vol] 158 mg/dL High 0 - 150 mg/dL AO ADM SS Comment on above: Interpretive Data: T riglyceride Reference Interval: Less than 150 Normal 150-199 Borderline high risk 200-499 High risk 500 or higher Very high risk LIPIDon 09-23-2024 Cholesterol [Mass/Vol] 220 mg/dL High 0-200 [facility] Comment on above: Result Comment: Chol esterol Reference Interval: Less than 200 Desirable 200-239 Borderline high risk 240 and above High risk Performed By: #### A DIFF, CMP, CBC, GFR, LIPID, ANEU, TSH #### [address] [address] Cholesterol in HDL [Mass/Vol] 54 mg/dL Normal 40-60 [facility] Comment on above: Performed By: #### A DIFF, CMP, CBC, GFR, LIPID, ANEU, TSH #### [address] [address] Cholesterol in LDL [Mass/Vol] 134 mg/dL High 0-130 [facility] Comment on above: Performed By: #### A DIFF, CMP, CBC, GFR, LIPID, ANEU, TSH #### [address] [address] Triglyceride [Mass/Vol] 158 mg/dL High 0-150 [facility] Comment on above: Result Comment: Trig lyceride Reference Interval: Less than 150 Normal 150-199 Borderline high risk 200-499 High risk 500 or higher Very high risk Performed By: #### A DIFF, CMP, CBC, GFR, LIPID, ANEU, TSH #### [address] [address] TSHon 09-23-2024 TSH Qn 1.27 m[IU]/L Normal 0.36-3.74 [facility] Comment on above: Performed By: #### A DIFF, CMP, CBC, GFR, LIPID, ANEU, TSH #### [address] [address] CNOVon 06-13-2024 CNOV Office Visit (UCTR ) HOA SOFIA ([id number]) 1995 F Date Time Provider Department 06/13/24 2:45 PM [facility] During your visit today, we recorded the following information about you: Temperature Pulse Respiration Blood pressure 98.7 degrees 105/minute 20/minute 120/80 Weight 76 kg Glenn Root PA 06/13/2024 3:05 PM Signed This note was created using [employer]. Subjective Hoa Sofia is a 28 year old female. HPI 28-year-old female presents for cough, chest congestion, sore throat, fever, body aches, headache x 4 days. Patient states she started getting sick on . She has nasal congestion, sinus pressure. She has a sore throat and dry cough. No chest pain or shortness of breath. She has had fevers, Tmax 100.5 ?F. 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 No other complaint. Has taken Mucinex and NyQuil for her symptoms with minimal improvement. 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 folic acid 1 mg tablet Take 1 tablet by mouth once daily. (Patient not taking: Reported on 06/05/2023) hydroxychloroquine (PLAQUENIL) 200 mg tablet Take 1 tablet by mouth twice daily. (Patient not taking: Reported on 06/05/2023) methotrexate 2.5 mg tablet Take 8 tablets by mouth once each week. (Patient not taking: Reported on 06/05/2023) hydroxychloroquine (PLAQUENIL) 200 mg tablet Take 200 mg by mouth twice daily. (Patient not taking: Reported on 06/05/2023) lisdexamfetamine (VYVANSE) 30 mg capsule Take 40 mg by mouth once daily. (Patient not taking: Reported on 06/05/2023) FAMILY HISTORY Problem Relation Age of Onset Diabetes Maternal Grandmother Heart Maternal Grandfather Hypertension Maternal Grandmother Social History Tobacco Use Smoking status: Never Substance Use Topics Alcohol use: No Review of Systems Constitutional: Positive for chills and fever. HENT: Positive for congestion and sore throat. Negative for ear pain. Respiratory: Positive for cough. Negative for shortness of breath. Cardiovascular: Negative for chest pain. Gastrointestinal: Negative for diarrhea and vomiting. Neurological: Positive for headaches. Objective BP 120/80 Pulse 105 Temp 37.1 ?C (98.7 ?F) Resp 20 Wt 76 kg (167 lb 8.8 oz) SpO2 98% BMI 29.68 kg/m? Physical Exam Vitals and nursing note reviewed. Constitutional: General: She is not in acute distress. Appearance: Normal appearance. She is not toxic-appearing. HENT: Right Ear: Tympanic membrane and ear canal normal. Left Ear: Tympanic membrane and ear canal normal. Nose: Congestion present. Mouth/Throat: Mouth: Mucous membranes are moist. Pharynx: Posterior oropharyngeal erythema present. Tonsils: 2+ on the right. 2+ on the left. Eyes: Conjunctiva/sclera: Conjunctivae normal. Cardiovascular: Rate and Rhythm: Normal rate and regular rhythm. Pulmonary: Effort: Pulmonary effort is normal. Breath sounds: Normal breath sounds. Lymphadenopathy: Cervical: Cervical adenopathy present. Skin: General: Skin is warm and dry. Neurological: Mental Status: She is alert. Assessment and Plan ASSESSMENT/PLAN: 1. URI, acute - ICD9: 465.9, ICD10: J06.9 (primary diagnosis) - Discussed viral etiology and rationale for treatment. - Symptomatic treatment with prn analgesia - Supportive care with fluids and rest -Clines viral swab 2. Sore throat - ICD9: 462, ICD10: J02.9 - suspect viral - Group A strep molecular testing negative - Discussed supportive care treatment with fluids, rest and analgesia. - The patient may also use warm salt water gargles, throat lozenges and/or OTC throat spray as needed. - STREP A MOLECULAR (POC) Diagnosis and treatment plan were discussed and questions were answered to the patient's satisfaction. Pt acknowledged understanding of concepts and follow up plan. Specific signs and symptoms that would indicate the need for higher level of care were discussed in detail warranting prompt ER evaluation. PORSHA Ge Allergies As of Date: 06/13/2024 Noted Allergy Reaction DOXYCYCLINE 03/12/2017 14 - Other: See Comments Comments: Swollen eyes PENICILLINS 09/20/2015 16 - Unknown Date Reviewed: 06/13/2024 Reviewed by: Dominique Ye MA - Fully Assessed Reason for Visit: Cough [28] Cmt: Runny nose, sneezing, fever, chest congestion, left ear (more content not included)... Normal [facility] STREP A MOLECULAR (POC)on Procedural Control Valid [facility] Strep A (POCT) Negative Negative [facility] CNOVon 12-07-2023 CNOV Office Visit (UCWSTR ) HOA SOFIA ([id number]) 1995 F Date Time Provider Department 12/07/23 10:00 AM ESTHER LOYOLA [facility] During your visit today, we recorded the following information about you: Esther Loyola APRN.WAREHOUSE OPERATIONS ASSOCIATE 12/07/2023 10:10 AM Signed Patient triaged at [facility]. Here today with dizziness for 3 years, seen by pcp for this multiple times. Seems to be bad lately. No s/s during triage. She has an appointment on Friday with her pcp, I advised to keep that appointment. If s/s worsen go to ER. Patient in no apparent distress at time of triage. Allergies As of Date: 12/07/2023 Noted Allergy Reaction DOXYCYCLINE 03/12/2017 14 - Other: See Comments Comments: Swollen eyes PENICILLINS 09/20/2015 16 - Unknown Date Reviewed: 12/07/2023 Reviewed by: Kesha Higgins RN - Fully Assessed Primary Visit Diagnosis:Dizziness [R42] Prescriptions as of 12/07/2023 - 1.5, 21, 1.5-30 mg-mcg TAKE 1 TABLET BY MOUTH EVERY DAY CONTINUOUSLY *NO WEEK OFF* - potassium citrate ER (UROCIT-K) 10 mEq (1,080 mg) Take 2 tablets by mouth every afternoon. - folic acid 1 mg tablet Take 1 tablet by mouth once daily. - hydroxychloroquine (PLAQUENIL) 200 mg tablet Take 1 tablet by mouth twice daily. - methotrexate 2.5 mg tablet Take 8 tablets by mouth once each week. - hydroxychloroquine (PLAQUENIL) 200 mg tablet Take 200 mg by mouth twice daily. - lisdexamfetamine (VYVANSE) 30 mg capsule Take 40 mg by mouth once daily. Problem List As Of Date 12/07/2023 Noted Resolved RA (rheumatoid arthritis) (HCC) [M06.9] jail methotrexate user [Z79.631] Antinuclear factor positive [R76.8] Hand joint pain [M25.549] Undifferentiated inflammatory arthritis (HCC) [* Encounter Status:Closed by ESTHER LOYOLA on 12/07/23 Normal [facility] STREP A MOLECULAR (POC)on Procedural Control Valid [facility] Strep A (POCT) Negative Negative [facility] .Auto Diffon 03-01-2023 Basophil, Absolute 0.1 10 3/mcL Normal 0.0-0.3 [facility] ([place]) Comment on above: Performed By: #### G FR, CBC, CMP, ADIFF, ANEU, LIPID, TSH #### [address] [address] Basophils/100 WBC (Bld) 1.1 % Normal 0.0-2.5 [facility] ([place]) Comment on above: Performed By: #### G FR, CBC, CMP, ADIFF, ANEU, LIPID, TSH #### [address] [address] Eosinophil, Absolute 0.0 10 3/mcL Normal 0.0-0.7 [facility] ([place]) Comment on above: Performed By: #### G FR, CBC, CMP, ADIFF, ANEU, LIPID, TSH #### [address] [address] Eosinophils/100 WBC (Bld) 0.6 % Normal 0.0-6.0 [facility] ([place]) Comment on above: Performed By: #### G FR, CBC, CMP, ADIFF, ANEU, LIPID, TSH #### [address] [address] Lymphocyte, Absolute 2.9 10 3/mcL Normal 0.9-4.3 [facility] ([place]) Comment on above: Performed By: #### G FR, CBC, CMP, ADIFF, ANEU, LIPID, TSH #### [address] [address] Lymphocytes/100 WBC (Bld) 42.5 % High 20.0-40.0 [facility] ([place]) Comment on above: Performed By: #### G FR, CBC, CMP, ADIFF, ANEU, LIPID, TSH #### [address] [address] Monocyte, Absolute 0.4 10 3/mcL Normal 0.1-1.4 [facility] ([place]) Comment on above: Performed By: #### G FR, CBC, CMP, ADIFF, ANEU, LIPID, TSH #### [address] [address] Monocytes/100 WBC (Bld) 6.6 % Normal 2.0-13.0 [facility] ([place]) Comment on above: Performed By: #### G FR, CBC, CMP, ADIFF, ANEU, LIPID, TSH #### [address] [address] Neutrophils/100 WBC (Bld) 49.2 % Low 50.0-75.0 [facility] ([place]) Comment on above: Performed By: #### G FR, CBC, CMP, ADIFF, ANEU, LIPID, TSH #### [address] [address] .GFRon 03-01-2023 GFR Non- >60 Normal [facility] ([place]) Comment on above: Result Comment: GFR Population mean for , Non- Americans Ages 20-29 = 116 mL/min/1.73 sq.m. Ages 30-39 = 107 mL/min/1.73 sq.m. Ages 40-49 = 99 mL/min/1.73 sq.m. Ages 50-59 = 93 mL/min/1.73 sq.m. Ages 60-69 = 85 mL/min/1.73 sq.m. Ages 70+ = 75 mL/min/1.73 sq.m. Chronic Kidney Disease: Less than 60 mL/min/1.73 square meters End Stage Renal Disease: Less than 15 mL/min/1.73 square meters Performed By: #### G FR, CBC, CMP, ADIFF, ANEU, LIPID, TSH #### [place] [address] GFR >60 Normal [facility] ([place]) Comment on above: Result Comment: GFR Population mean for , Non- Americans Ages 20-29 = 116 mL/min/1.73 sq.m. Ages 30-39 = 107 mL/min/1.73 sq.m. Ages 40-49 = 99 mL/min/1.73 sq.m. Ages 50-59 = 93 mL/min/1.73 sq.m. Ages 60-69 = 85 mL/min/1.73 sq.m. Ages 70+ = 75 mL/min/1.73 sq.m. Chronic Kidney Disease: Less than 60 mL/min/1.73 square meters End Stage Renal Disease: Less than 15 mL/min/1.73 square meters Performed By: #### G FR, CBC, CMP, ADIFF, ANEU, LIPID, TSH #### [place] [address] .NEUABSon 03-01-2023 Neutrophil, Absolute 3.3 10 3/mcL Normal 2.3-8.1 [facility] ([place]) Comment on above: Performed By: #### G FR, CBC, CMP, ADIFF, ANEU, LIPID, TSH #### [place] [address] CBCon 03-01-2023 Erythrocyte distribution width (RBC) [Ratio] 12.7 % Normal 11.5-15.5 [facility] ([place]) Comment on above: Performed By: #### G FR, CBC, CMP, ADIFF, ANEU, LIPID, TSH #### [place] [address] Hematocrit (Bld) [Volume fraction] 41.7 % Normal 34.0-46.0 [facility] ([place]) Comment on above: Performed By: #### G FR, CBC, CMP, ADIFF, ANEU, LIPID, TSH #### [place] [address] Hgb 14.3 G/dL Normal 12.0-16.0 [facility] ([place]) Comment on above: Performed By: #### G FR, CBC, CMP, ADIFF, ANEU, LIPID, TSH #### [place] [address] MCH (RBC) [Entitic mass] 32.3 pg Normal 27.0-33.0 [facility] ([place]) Comment on above: Performed By: #### G FR, CBC, CMP, ADIFF, ANEU, LIPID, TSH #### [place] [address] MCHC 34.3 G/dL Normal 32.0-36.0 [facility] ([place]) Comment on above: Performed By: #### G FR, CBC, CMP, ADIFF, ANEU, LIPID, TSH #### [place] [address] MCV (RBC) [Entitic vol] 94.3 fL Normal 80.0-99.0 [facility] ([place] Comment on above: Performed By: #### G FR, CBC, CMP, ADIFF, ANEU, LIPID, TSH #### [place] [address] Platelet 304 10 3/mcL Normal 150-450 [facility] ([place]) Comment on above: Performed By: #### G FR, CBC, CMP, ADIFF, ANEU, LIPID, TSH #### [address] [address] Platelet mean volume (Bld) [Entitic vol] 9.7 fL Normal 6.6-10.5 [facility] ([place]) Comment on above: Performed By: #### G FR, CBC, CMP, ADIFF, ANEU, LIPID, TSH #### [address] [address] RBC 4.42 10 6/mcL Normal 4.10-5.30 [facility] ([place]) Comment on above: Performed By: #### G FR, CBC, CMP, ADIFF, ANEU, LIPID, TSH #### [place] [id number] WBC 6.8 10 3/mcL Normal 4.5-10.8 [facility] ([place]) Comment on above: Performed By: #### G FR, CBC, CMP, ADIFF, ANEU, LIPID, TSH #### [place] [address] CMPon 03-01-2023 Albumin Level 4.2 G/dL Normal 3.2-4.8 [facility] ([place]) Comment on above: Performed By: #### G FR, CBC, CMP, ADIFF, ANEU, LIPID, TSH #### [place] [id number] Albumin/Globulin [Mass ratio] 1.3 {ratio} Normal 0.9-1.6 [facility] ([place]) Comment on above: Performed By: #### G FR, CBC, CMP, ADIFF, ANEU, LIPID, TSH #### [place] [address] ALP [Catalytic activity/Vol] 50 U/L Normal 38-126 [facility] ([place]) Comment on above: Performed By: #### G FR, CBC, CMP, ADIFF, ANEU, LIPID, TSH #### [place] [id number] ALT [Catalytic activity/Vol] 13 U/L Normal 10-49 [facility] ([place]) Comment on above: Performed By: #### G FR, CBC, CMP, ADIFF, ANEU, LIPID, TSH #### [address] [address] AST [Catalytic activity/Vol] 19 U/L Normal 8-34 [facility] ([place]) Comment on above: Performed By: #### G FR, CBC, CMP, ADIFF, ANEU, LIPID, TSH #### [address] [address] Bili Total 0.50 mg/dL Normal 0.20-1.20 [facility] ([place]) Comment on above: Result Comment: Use of this assay is not recommended for patients undergoing treatment with eltrombopag due to the potential for falsely elevated results. Performed By: #### G FR, CBC, CMP, ADIFF, ANEU, LIPID, TSH #### [address] [address] BUN/Creatinine Ratio 16.1 ratio Normal 10.0-22.0 [facility] ([place]) Comment on above: Performed By: #### G FR, CBC, CMP, ADIFF, ANEU, LIPID, TSH #### [address] [address] Calcium [Mass/Vol] 9.8 mg/dL Normal 8.7-10.4 [facility] ([place]) Comment on above: Performed By: #### G FR, CBC, CMP, ADIFF, ANEU, LIPID, TSH #### [address] [address] Chloride [Moles/Vol] 106 mmol/L Normal 98-110 [facility] ([place]) Comment on above: Performed By: #### G FR, CBC, CMP, ADIFF, ANEU, LIPID, TSH #### [address] [address] CO2 [Moles/Vol] 26 mmol/L Normal 22-32 [facility] ([place]) Comment on above: Performed By: #### G FR, CBC, CMP, ADIFF, ANEU, LIPID, TSH #### [address] [address] Creatinine [Mass/Vol] 0.56 mg/dL Normal 0.50-1.20 [facility] ([place]) Comment on above: Performed By: #### G FR, CBC, CMP, ADIFF, ANEU, LIPID, TSH #### [address] [address] Electrolyte Balance 5.0 mEq/L Normal 4.0-15.0 [facility] ([place]) Comment on above: Performed By: #### G FR, CBC, CMP, ADIFF, ANEU, LIPID, TSH #### [address] [address] Globulin 3.2 G/dL Normal 1.5-3.8 [facility] ([place]) Comment on above: Performed By: #### G FR, CBC, CMP, ADIFF, ANEU, LIPID, TSH #### [address] [address] Glucose [Mass/Vol] 91 mg/dL Normal 70-110 [facility] ([place]) Comment on above: Performed By: #### G FR, CBC, CMP, ADIFF, ANEU, LIPID, TSH #### [place] [id number] Potassium [Moles/Vol] 4.0 mmol/L Normal 3.5-5.0 [facility] ([place]) Comment on above: Performed By: #### G FR, CBC, CMP, ADIFF, ANEU, LIPID, TSH #### [address] [address] Sodium [Moles/Vol] 137 mmol/L Normal 136-145 [facility] ([place]) Comment on above: Performed By: #### G FR, CBC, CMP, ADIFF, ANEU, LIPID, TSH #### [address] [address] Total Protein 7.4 G/dL Normal 5.7-8.2 [facility] ([place]) Comment on above: Result Comment: No te - New Reference Range in effect 19 Performed By: #### G FR, CBC, CMP, ADIFF, ANEU, LIPID, TSH #### [address] [address] Urea nitrogen [Mass/Vol] 9.0 mg/dL Normal 8.0-22.0 [facility] ([place]) Comment on above: Performed By: #### G FR, CBC, CMP, ADIFF, ANEU, LIPID, TSH #### [address] [address] LIPIDon 03-01-2023 Cholesterol [Mass/Vol] 207 mg/dL High 50-199 [facility] ([place]) Comment on above: Result Comment: Chol esterol Reference Interval: Less than 200 Desirable 200-239 Borderline high risk 240 and above High risk Performed By: #### G FR, CBC, CMP, ADIFF, ANEU, LIPID, TSH #### [address] [address] Cholesterol in HDL [Mass/Vol] 58 mg/dL Normal 40-59 [facility] ([place]) Comment on above: Performed By: #### G FR, CBC, CMP, ADIFF, ANEU, LIPID, TSH #### [address] [address] Cholesterol in LDL [Mass/Vol] 120 mg/dL Normal 0-129 [facility] ([place]) Comment on above: Performed By: #### G FR, CBC, CMP, ADIFF, ANEU, LIPID, TSH #### [address] [address] Triglyceride [Mass/Vol] 145 mg/dL Normal 3-149 [facility] ([place] Comment on above: Performed By: #### G FR, CBC, CMP, ADIFF, ANEU, LIPID, TSH #### [address] [address] TSHon 03-01-2023 TSH 1.326 mIU/mL Normal 0.550-4.780 [facility] ([place]) Comment on above: Result Comment: No te - New Reference Range in effect 19 Performed By: #### G FR, CBC, CMP, ADIFF, ANEU, LIPID, TSH #### [address] [address] Absolute lymphocyte countOrd ered By: Davidson Cummings on 12-14-2022 Lymphocytes Auto (Unsp spec) [#/Vol] 2.26 10*3/uL 0.83-4.51 [facility] Basophil percentageOrdered B y: Davidson Cummings on 12-14-2022 Basophil percentage 0 SEEN /hpf 0-5 [facility] Basophils/100 WBC (Bld) 1.0 % 0-1 [facility] Bilirubin [Mass/Vol] 0.60 mg/dL 0.20-1.00 [facility] Comment on above: For patients on eltr ombopag therapy, use of [facility] [place] TBIL is not recommended. Chloride [Moles/Vol] 105 mmol/L 98-107 [facility] Eosinophils/100 WBC (Bld) 0.8 % 0-5 [facility] Glucose [Mass/Vol] 92 mg/dL 74-106 [facility] Neutrophils (Bld) [#/Vol] 2.0 10*3/uL 2.0-7.7 [facility] Neutrophils/100 WBC (Bld) 40.0 % 47-70 [facility] Potassium [Moles/Vol] 3.7 mmol/L 3.5-5.1 [facility] Protein [Mass/Vol] 7.7 g/dL 6.4-8.2 [facility] Sodium [Moles/Vol] 137 mmol/L 136-145 [facility] WBC (Bld) [#/Vol] 5.0 10*3/uL 4.4-11.0 [facility] Bilirubin Test strip Ql (U)O rdered By: Davidson Cummings on 12-14-2022 Bilirubin Ql (U) Negative Negative [facility] Blood erythrocytes count (nu mber/volume)Ordered By: Davidson Cummings on 12-14-2022 RBC (Bld) [#/Vol] 4.73 10*6/uL 4.2-5.4 [facility] Blood hemoglobin measurement (mass/volume)Ordered By: Davidson Cummings on 12-14-2022 Hemoglobin (Bld) [Mass/Vol] 14.7 g/dL 12.0-15.0 [facility] Blood lymphocytes/100 leukoc ytesOrdered By: Davidson Cummings on 12-14-2022 Lymphocytes/100 WBC (Bld) 45.2 % 19-41 [facility] Blood monocytes/100 leukocyt esOrdered By: Davidson Cummings on 12-14-2022 Monocytes/100 WBC (Bld) 12.8 % 0-10 [facility] Blood platelet mean volumeOr dered By: Davidson Cummings on 12-14-2022 Platelet mean volume (Bld) [Entitic vol] 10.9 fL 6.2-12.0 [facility] Determination of erythrocyte mean corpuscular volume (MCV)Ordered By: Davidson Cummings on 12-14-2022 MCV (RBC) [Entitic vol] 92.2 fL 81-99 [facility] Hematocrit Auto (Bld) [Volum e fraction]Ordered By: Davidson Cummings on 12-14-2022 Hematocrit (Bld) [Volume fraction] 43.6 % 37-47 [facility] Ketones Test strip Ql (U)Ord ered By: Davidson Cummings on 12-14-2022 Ketones Ql (U) Negative Negative [facility] Laboratory - Chemistry and C hemistry - challengeOrdered By: Davidson Cummings on 12-14-2022 HCG ( test) Ql (U) Negative [facility] Comment on above: Very dilute urine sp ecimens, as indicated by a low specificgravity, may not contain human resources hr representative levels of hCG. If is still suspected, a first morning urinespecimen should be collected 48 hours later and tested. ALP [Catalytic activity/Vol] 66 U/L 45-117 [facility] ALT [Catalytic activity/Vol] 25 U/L 13-56 [facility] CO2 [Moles/Vol] 26.0 mmol/L 21.0-32.0 [facility] Globulin (S) [Mass/Vol] 3.8 g/dL 2.2-4.2 [facility] Lipase [Catalytic activity/Vol] 21 U/L 13-75 [facility] Comment on above: Please note:LIPASE r evised reference range effective 22. New Lipase methodology. Expected to produce lower values than the previous assay method. NEW Reference Range: 13 - 75 U/L Urea nitrogen/Creatinine [Mass ratio] 17.0 mg/mg 10-20 [facility] - Hematology and Cell countsOrdered By: Davidson Cummings on 12-14-2022 Erythrocyte distribution width (RBC) [Entitic vol] 37.8 fL 35.1-43.9 [facility] Erythrocyte distribution width (RBC) [Ratio] 11.1 % 11.6-14.6 [facility] Immature granulocytes/100 WBC (Bld) 0.200 % 0.0-0.9 [facility] Comment on above: IG% - Immature Granu locytes (promyelocytes, myelocytes and metamyelocytes) > 1% indicates that a LEFT SHIFT is Present. MCH (RBC) [Entitic mass] 31.1 pg 27.0-32.0 [facility] Nucleated RBC/100 WBC (Bld) [Ratio] 0 % 0-5 [facility] MCHC Auto (RBC) [Mass/Vol]Or dered By: Davidson Cummings on 12-14-2022 MCHC (RBC) [Mass/Vol] 33.7 g/dL 32-36 [facility] Mucus LM Ql (Urine sed)Order ed By: Davidson Cummings on 12-14-2022 Mucus Ql (Urine sed) 0 SEEN /hpf [facility] Nitrite Test strip Ql (U)Ord ered By: Davidson Cummings on 12-14-2022 Nitrite Ql (U) Negative Negative [facility] No Panel InformationOrdered By: Davidson Cummings on 12-14-2022 Estimated Creatinine Clearance Calc 108.49 ml/min [facility] Estimated GFR (MDRD) Amer 142 mL/min >60 [facility] Comment on above: GFR Calc Estimated GFR (MDRD) Non-Af Amer 118 mL/min >60 [facility] Comment on above: Non- GFR Calc Platelets bldOrdered By: Kerry Cummings on 12-14-2022 Platelets (Bld) [#/Vol] 319 10*3/uL 150-450 [facility] Protein Test strip Ql (U)Ord ered By: Davidson Cummings on 12-14-2022 Protein Ql (U) Negative Negative [facility] Serum or plasma albumin alix urement (mass/volume)Ordered By: Davidson Cummings on 12-14-2022 Albumin [Mass/Vol] 3.9 g/dL 3.2-5.0 [facility] Serum or plasma albumin/glob ulin mass ratioOrdered By: Davidson Cummings on 12-14-2022 Albumin/Globulin [Mass ratio] 1.0 {ratio} 0.9-2.4 [facility] Serum or plasma calcium alix urement (mass/volume)Ordered By: Davidson Cummings on 12-14-2022 Calcium [Mass/Vol] 9.2 mg/dL 8.5-10.1 [facility] Serum or plasma creatinine m easurement (mass/volume)Ordered By: Davidson Cummings on 12-14-2022 Creatinine [Mass/Vol] 0.65 mg/dL 0.55-1.02 [facility] Comment on above: The validity of the calculated GFR & GFRAA in patients over 70 years has not been determined. Clinical correlation is essential. Serum or plasma urea nitroge n measurement (mass/volume)Ordered By: Davidson Cummings on 12-14-2022 Urea nitrogen [Mass/Vol] 11 mg/dL 7-18 [facility] Squamous epithelial cells de tection in urine sediment by light microscopyOrdered By: Davidson Cummings on 12-14-2022 Epithelial cells.squamous LM Ql (Urine sed) 0-5 SEEN /hpf 5-10 [facility] Thin prep Papanicolaou smear with manual screeningOrdered By: Davidson Cummings on 12-14-2022 Thin prep Papanicolaou smear with manual screening 21 U/L 15-37 [facility] Thin prep Papanicolaou smear with manual screening 6 5-15 [facility] Urine blood detectionOrdered By: Davidson Cummings on 12-14-2022 RBC Ql (U) 25 /ul Negative [facility] RBC Ql (U) 0 SEEN /hpf 0-5 [facility] Urine clarityOrdered By: Kerry Cummings on 12-14-2022 Clarity (U) Clear Clear [facility] Urine color determinationOrd ered By: Davidson Cummings on 12-14-2022 Color (U) Yellow Yellow [facility] Urine glucose detectionOrder ed By: Davidson Cummings on 12-14-2022 Glucose Ql (U) Normal mg/dl Normal [facility] Urine leukocyte esterase det ection by dipstickOrdered By: Davidson Cummings on 12-14-2022 Leukocyte esterase Test strip Ql (U) Negative Negative [facility] Urine pHOrdered By: Davidson lo on 12-14-2022 pH (U) 7.0 [pH] 5.0 - 8.0 [facility] Urine sediment bacteria coun t by microscopy (number/high power field)Ordered By: Davidson Cummings on 12-14-2022 Bacteria LM.HPF (Urine sed) [#/Area] 1 /[HPF] None Seen [facility] Urine specific gravity measu rementOrdered By: Davidson Darlingsumijael on 12-14-2022 Specific gravity (U) [Rel density] 1.005 1.002-1.030 [facility] Urobilinogen Auto test strip Ql (U)Ordered By: Davidson Darlingsumijael on 12-14-2022 Urobilinogen Ql (U) Normal mg/dl Normal [facility] Vital Signs Date Time Vital Sign Value Performing Clinician Facility 06-13-2024 14:49-0500 Body mass index (BMI) [Ratio] 29.68 kg/m2 Krislyn Aberegg PA Work Phone: [facility] 06-13-2024 14:49-0500 Body temperature 98.71 [degF] Krislyn Aberegg PA Work Phone: [facility] 06-13-2024 14:49-0500 Body weight 76 kg Krislyn Aberegg PA Work Phone: [facility] 06-13-2024 14:49-0500 Diastolic blood pressure 80 mm[Hg] Krislyn Aberegg PA Work Phone: [facility] 06-13-2024 14:49-0500 Heart rate 105 /min Krislyn Aberegg PA Work Phone: [facility] 06-13-2024 14:49-0500 Respiratory rate 20 /min Krislyn Aberegg PA Work Phone: [facility] 06-13-2024 14:49-0500 SaO2% (BldA) [Mass fraction] 98 % Krislyn Aberegg PA Work Phone: [facility] 06-13-2024 14:49-0500 Systolic blood pressure 120 mm[Hg] Krislyn Aberegg PA Work Phone: [facility] 06-05-2023 16:15-0500 Body temperature 97.9 [degF] Marleni Mir AUTOMATION CONSULTANT.WAREHOUSE OPERATIONS ASSOCIATE Work Phone: [facility] 06-05-2023 16:15-0500 Body weight 68.95 kg Marleni Mir AUTOMATION CONSULTANT.WAREHOUSE OPERATIONS ASSOCIATE Work Phone: [facility] 06-05-2023 16:15-0500 Diastolic blood pressure 80 mm[Hg] Marleni Mir AUTOMATION CONSULTANT.WAREHOUSE OPERATIONS ASSOCIATE Work Phone: [facility] 06-05-2023 16:15-0500 Heart rate 99 /min Marleni Mir AUTOMATION CONSULTANT.WAREHOUSE OPERATIONS ASSOCIATE Work Phone: [facility] 06-05-2023 16:15-0500 Respiratory rate 18 /min Marleni Mir AUTOMATION CONSULTANT.WAREHOUSE OPERATIONS ASSOCIATE Work Phone: [facility] 06-05-2023 16:15-0500 SaO2% (BldA) [Mass fraction] 100 % Marleni Mir AUTOMATION CONSULTANT.WAREHOUSE OPERATIONS ASSOCIATE Work Phone: [facility] 06-05-2023 16:15-0500 Systolic blood pressure 125 mm[Hg] Marleni Mir AUTOMATION CONSULTANT.WAREHOUSE OPERATIONS ASSOCIATE Work Phone: [facility] 12-14-2022 11:04-0400 Body height 160.02 cm [facility] 12-14-2022 11:04-0400 Body mass index (BMI) [Ratio] 25.9 kg/m2 [facility] 12-14-2022 11:04-0400 Body temperature 98 [degF] [facility] 12-14-2022 11:04-0400 Body weight 66.5 kg [facility] 12-14-2022 11:04-0400 Diastolic blood pressure 86 mm[Hg] [facility] 12-14-2022 11:04-0400 Heart rate 104 /min [facility] 12-14-2022 11:04-0400 Respiratory rate 14 /min [facility] 12-14-2022 11:04-0400 SaO2% (BldA) [Mass fraction] 100 % [facility] 12-14-2022 11: Systolic blood pressure 131 mm[Hg] [facility] Encounters Encounter Date Encounter Type Care Provider Facility Start: 11-03-2024 End: 11-03-[address] Ray Anderson MD Work Phone: [facility] Start: 11-03-2024 End: 11-03-[address] Ray Anderson MD [facility] Work Phone: Start: 11-03-2024 End: 11-03-2024 ambulatory KOURTNEY DE LA CRUZ Facility:[facility] Start: 09-23-2024 End: 09-23-2024 ambulatory DIOGENES AVENDAÑO MD Facility:[facility] Start: 09-23-2024 Encounter for genera l adult medical examination without abnormal findings DIOGENES AVENDAÑO MD [facility] Start: 09-23-2024 End: 09-23-2024 Patient encounter procedure DIOGENES AVENDAÑO MD [facility] Start: 06-13-2024 End: 06-13-2024 ambulatory Facility:[facility] Start: 06-13-2024 End: 06-13-2024 Patient encounter procedure Glenn STORY Work Phone: [facility] Comment on above: URI, acute (Primary Dx); Sore throat Start: 12-24-2023 ambulatory DIOGENES AVENDAÑO Facility:[facility] Start: 12-07-2023 End: 12-07-2023 ambulatory Kesha Higgins RN NURSE 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 Comment on above: Dizziness Start: 12-07-2023 End: 12-07-2023 Patient encounter procedure Esther Loyola APRN.WAREHOUSE OPERATIONS ASSOCIATE Work Phone: [facility] Comment on above: Dizziness (Primary D x) Start: 06-05-2023 End: 06-05-2023 Patient encounter procedure Marleni Mir APRN.WAREHOUSE OPERATIONS ASSOCIATE Work Phone: [facility] Comment on above: URI, acute (Primary Dx) Start: 02-28-2023 End: 03-04-2023 ambulatory DIOGENES AVENDAÑO Facility:[facility] Start: 02-28-2023 End: 03-04-2023 Encounter for general adult medical examination without abnormal findings DIOGENES PAZO Facility:[facility] Start: 12-14-2022 End: 12-14-2022 Emergency department patient visit [facility] Work Phone: Start: 12-14-2022 End: 12-14-2022 Patient encounter procedure Eveline Razo AUTOMATION CONSULTANT.WAREHOUSE OPERATIONS ASSOCIATE Work Phone: [facility] Comment on above: Epigastric pain (Valery garret Dx) Procedures Date Procedure Procedure Detail Performing Clinician Start: 11-03-2024 MRI of brain with contrast Dr. Ray Anderson MD Work Phone: Start: 06-13-2024 STREP A MOLECULAR (POC) Glenn Root PA Work Phone: Start: 06-05-2023 STREP A MOLECULAR (POC) Marleni Mir APRN.WAREHOUSE OPERATIONS ASSOCIATE Work Phone: Start: 12-14-2022 Computed tomography of abdomen and pelvis with intravenous contrast Plan of Treatment Date Care Activity Detail Author Start: 12-28-2028 Urine microalbumin profile DTaP,Tdap,Td Vaccine (2 - Td or Tdap) [facility] Start: 12-21-2023 Influenza vaccination Influenza Vaccine (#1) [facility] Start: 04-21-2023 Depression Assessment Depression Assessment [facility] Start: 12-20-2022 Influenza vaccination [facility] Start: 12-14-2022 [facility] Start: 04-21-2022 DEPRESSION ASSESSMENT DEPRESSION ASSESSMENT [facility] Start: 07-22-2020 COVID-19 VACCINE (3 - Pfizer risk series) COVID-19 VACCINE (3 - Pfizer risk series) [facility] Start: 2017 PAP TESTING PAP TESTING [facility] Start: 2017 Screening for malignant neoplasm of cervix Pap Testing [facility] Start: 08-18-2015 Hepatitis B Vaccine (1 of 3 - 19+ 3-dose series) Hepatitis B Vaccine (1 of 3 - 19+ 3-dose series) [facility] Start: 08-18-2015 Pneumococcal vaccination Pneumococcal Vaccine (1 of 2 - PCV) [facility] Start: 08-18-2015 SHINGRIX VACCINE (1 of 2) SHINGRIX VACCINE (1 of 2) [facility] Start: 08-18-2015 Urine microalbumin profile DTAP,TDAP,TD (1 - Tdap) [facility] Start: 2014 Anxiety Screening Anxiety Screening [facility] Start: 2014 Depression Screening Depression Screening [facility] Start: 2014 HIV SCREENING HIV SCREENING [facility] Start: 2014 HIV screening HIV Screening [facility] Start: 2010 PEDS TO ADULT TRANSITION ANNUAL ASSESSMENT PEDS TO ADULT TRANSITION ANNUAL ASSESSMENT [facility] Start: 2008 PEDS TO ADULT TRANSITION INITIAL DISCUSSION PEDS TO ADULT TRANSITION INITIAL DISCUSSION [facility] Start: 08-18-2007 Screening for malignant neoplasm of cervix Cervical Cancer Screening [facility] Start: 2005 HPV VACCINE (1 - 2-dose series) HPV VACCINE (1 - 2-dose series) [facility] Start: 2005 HPV Vaccine (1 - Risk 3-dose series) HPV Vaccine (1 - Risk 3-dose series) [facility] Start: 2002 PNEUMOCOCCAL (1 - PCV) PNEUMOCOCCAL (1 - PCV) [facility] Start: 2002 Pneumococcal vaccination Pneumococcal Vaccine (1 of 2 - PCV) [facility] Start: 1996 HEPATITIS B (1 of 3 - 3-dose series) HEPATITIS B (1 of 3 - 3-dose series) [facility] Start: 1996 Hepatitis B Vaccine (1 of 3 - 3-dose series) Hepatitis B Vaccine (1 of 3 - 3-dose series) [facility] Patient Education Abdominal Pain ED Gastritis (Adult) [facility] Work Phone: Immunizations Immunization Date Immunization Notes Care Provider Fa cility 12-21-2021 influenza, injectabl e, quadrivalent, contains preservative; Translations: [Flucelvax PF Quadrivalent ] Glenn Root PA Work Phone: [facility] 12-21-2021 influenza virus vacc ine, unspecified formulation Marleni Mir AUTOMATION CONSULTANT.WAREHOUSE OPERATIONS ASSOCIATE Work Phone: [facility] 06-24-2020 SARS-CoV-2 mRNA (tozinameran) vaccine DIOGENES AVENDAÑO MD [facility] Comment on above: Result Comment: 2021: TPV23 06-03-2020 SARS-CoV-2 mRNA (tozinameran) vaccine DIOGENES AVENDAÑO MD [facility] Comment on above: Result Comment: 2021: TPV23 01-31-2020 Influenza, injectabl e, Madin Greenwood Canine Kidney, preservative free, quadrivalent; Translations: [Flucelvax PF Quadrivalent ] Glenn STORY Work Phone: [facility] 12-28-2018 Influenza, injectabl e, Madin Greenwood Canine Kidney, preservative free, quadrivalent; Translations: [Flucelvax PF Quadrivalent ] Glenn STORY Work Phone: [facility] 12-28-2018 tetanus toxoid, redu emy diphtheria toxoid, and acellular pertussis vaccine, adsorbed; Translations: [Boostrix (Tdap)] Glenn STORY Work Phone: [facility] 01-24-2018 Influenza, injectabl e, Madin Greenwood Canine Kidney, preservative free, quadrivalent Glenn STORY Work Phone: [facility] 10-21-2014 meningococcal polysaccharide (groups A, C, Y and W-135) diphtheria toxoid conjugate vaccine (MCV4P) Glenn STORY Work Phone: [facility] 01-26-2014 influenza, live, intranasal, quadrivalent Glenn STORY Work Phone: [facility] Payers Date Payer Category Payer Self-pay 2022 Private Health Insurance [id number] 2022 Unknown MMO MMO [employer] PPO [id number] 2022-Present [phone] [address] [place] [address] PPO [id number] 2022 Unknown [id number] 1996 Unknown [id number] 1996 Unknown [id number] 1996 Unknown [id number] Unknown [id number] Social History Date Type Detail Facility Start: 12-14-2022 Tobacco smoking stat us WIIS Unknown if ever smoked [facility] Start: 1995 Sex Assigned At Female [facility] Start: 10-14-2019 End: 12-14-2022 Tobacco smoking status NHIS Never smoked tobacco [facility] Start: 12-01-2015 End: 06-05-2023 Alcohol intake Current non-drinker of alcohol (finding) [facility] Start: 12-04-2016 End: 06-05-2023 History of Social function [facility] Start: 12-04-2016 End: 06-05-2023 Tobacco use panel [facility] Start: 1996 [facility] Orientation Alethea zamudio Alethea [facility] Start: 12-14-2019 Sex Female (finding) [facility] NEGATED: Highlighted row [facility] Clinical Notes 12-14-2022 to 06-13-2024 Glenn Root PA - 06/13/2024 2:54 PM Esther Ramey APRN.WAREHOUSE OPERATIONS ASSOCIATE - 12/07/2023 10:08 AM EDTTelephone Encounter - Kesha Higgins, OJRDAN - 12/07/2023 8:47 AM EDTRadiology Note Date & Type Note Facility 06-13-2024 Note HNO ID: [id number] Author: GELNN ROOT PA Service: ? Author Type: Physician Ichthyologist Type: Progress Notes Filed: 06/13/2024 15:05 Note Text: This note was created using [employer]. Subjective Hoa Soifa is a 28 year old female. HPI 28-year-old female presents for cough, chest congestion, sore throat, fever, body aches, headache x 4 days. Patient states she started getting sick on . She has nasal congestion, sinus pressure. She has a sore throat and dry cough. No chest pain or shortness of breath. She has had fevers, Tmax 100.5 ?F. 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 No other complaint. Has taken Mucinex and NyQuil for her symptoms with minimal improvement. 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 folic acid 1 mg tablet Take 1 tablet by mouth once daily. (Patient not taking: Reported on 06/05/2023) hydroxychloroquine (PLAQUENIL) 200 mg tablet Take 1 tablet by mouth twice daily. (Patient not taking: Reported on 06/05/2023) methotrexate 2.5 mg tablet Take 8 tablets by mouth once each week. (Patient not taking: Reported on 06/05/2023) hydroxychloroquine (PLAQUENIL) 200 mg tablet Take 200 mg by mouth twice daily. (Patient not taking: Reported on 06/05/2023) lisdexamfetamine (VYVANSE) 30 mg capsule Take 40 mg by mouth once daily. (Patient not taking: Reported on 06/05/2023) FAMILY HISTORY Problem Relation Age of Onset Diabetes Maternal Grandmother Heart Maternal Grandfather Hypertension Maternal Grandmother Social History Tobacco Use Smoking status: Never Substance Use Topics Alcohol use: No Review of Systems Constitutional: Positive for chills and fever. HENT: Positive for congestion and sore throat. Negative for ear pain. Respiratory: Positive for cough. Negative for shortness of breath. Cardiovascular: Negative for chest pain. Gastrointestinal: Negative for diarrhea and vomiting. Neurological: Positive for headaches. Objective BP 120/80 Pulse 105 Temp 37.1 ?C (98.7 ?F) Resp 20 Wt 76 kg (167 lb 8.8 oz) SpO2 98% BMI 29.68 kg/m? Physical Exam Vitals and nursing note reviewed. Constitutional: General: She is not in acute distress. Appearance: Normal appearance. She is not toxic-appearing. HENT: Right Ear: Tympanic membrane and ear canal normal. Left Ear: Tympanic membrane and ear canal normal. Nose: Congestion present. Mouth/Throat: Mouth: Mucous membranes are moist. Pharynx: Posterior oropharyngeal erythema present. Tonsils: 2+ on the right. 2+ on the left. Eyes: Conjunctiva/sclera: Conjunctivae normal. Cardiovascular: Rate and Rhythm: Normal rate and regular rhythm. Pulmonary: Effort: Pulmonary effort is normal. Breath sounds: Normal breath sounds. Lymphadenopathy: Cervical: Cervical adenopathy present. Skin: General: Skin is warm and dry. Neurological: Mental Status: She is alert. Assessment and Plan ASSESSMENT/PLAN: 1. URI, acute - ICD9: 465.9, ICD10: J06.9 (primary diagnosis) - Discussed viral etiology and rationale for treatment. - Symptomatic treatment with prn analgesia - Supportive care with fluids and rest -Clines viral swab 2. Sore throat - ICD9: 462, ICD10: J02.9 - suspect viral - Group A strep molecular testing negative - Discussed supportive care treatment with fluids, rest and analgesia. - The patient may also use warm salt water gargles, throat lozenges and/or OTC throat spray as needed. - STREP A MOLECULAR (POC) Diagnosis and treatment plan were discussed and questions were answered to the patient's satisfaction. Pt acknowledged understanding of concepts and follow up plan. Specific signs and symptoms that would indicate the need for higher level of care were discussed in detail warranting prompt ER evaluation. PORSHA Ge [facility] 06-13-2024 History of Presen t illness Narrative This note was created using [employer]. Subjective Hoa Sofia is a 28 year old female. HPI 28-year-old female presents for cough, chest congestion, sore throat, fever, body aches, headache x 4 days. Patient states she started getting sick on . She has nasal congestion, sinus pressure. She has a sore throat and dry cough. No chest pain or shortness of breath. She has had fevers, Tmax 100.5 F. 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 No other complaint. Has taken Mucinex and NyQuil for her symptoms with minimal improvement. PAST MEDICAL HISTORY Diagnosis Date Antinuclear factor positive Hand joint pain jail methotrexate user Other residential (current) drug therapy RA (rheumatoid arthritis) (HCC) Undifferentiated inflammatory arthritis (HCC) PAST SURGICAL HISTORY Procedure Laterality Date NONE ALLERGIES Doxycycline and Penicillins MEDICATIONS , , 1.5-30 mg-mcg TAKE 1 TABLET BY MOUTH EVERY DAY CONTINUOUSLY *NO WEEK OFF* potassium citrate ER (UROCIT-K) 10 mEq (1,080 mg) Take 2 tablets by mouth every afternoon. folic acid 1 mg tablet Take 1 tablet by mouth once daily. (Patient not taking: Reported on 06/05/2023) hydroxychloroquine (PLAQUENIL) 200 mg tablet Take 1 tablet by mouth twice daily. (Patient not taking: Reported on 06/05/2023) methotrexate 2.5 mg tablet Take 8 tablets by mouth once each week. (Patient not taking: Reported on 06/05/2023) hydroxychloroquine (PLAQUENIL) 200 mg tablet Take 200 mg by mouth twice daily. (Patient not taking: Reported on 06/05/2023) lisdexamfetamine (VYVANSE) 30 mg capsule Take 40 mg by mouth once daily. (Patient not taking: Reported on 06/05/2023) FAMILY HISTORY Problem Relation Age of Onset Diabetes Maternal Grandmother Heart Maternal Grandfather Hypertension Maternal Grandmother Social History Tobacco Use Smoking status: Never Substance Use Topics Alcohol use: No Review of Systems Constitutional: Positive for chills and fever. HENT: Positive for congestion and sore throat. Negative for ear pain. Respiratory: Positive for cough. Negative for shortness of breath. Cardiovascular: Negative for chest pain. Gastrointestinal: Negative for diarrhea and vomiting. Neurological: Positive for headaches. Objective BP 120/80 Pulse 105 Temp 37.1 C (98.7 F) Resp 20 Wt 76 kg (167 lb 8.8 oz) SpO2 98% BMI 29.68 kg/m Physical Exam Vitals and nursing note reviewed. Constitutional: General: She is not in acute distress. Appearance: Normal appearance. She is not toxic-appearing. HENT: Right Ear: Tympanic membrane and ear canal normal. Left Ear: Tympanic membrane and ear canal normal. Nose: Congestion present. Mouth/Throat: Mouth: Mucous membranes are moist. Pharynx: Posterior oropharyngeal erythema present. Tonsils: 2+ on the right. 2+ on the left. Eyes: Conjunctiva/sclera: Conjunctivae normal. Cardiovascular: Rate and Rhythm: Normal rate and regular rhythm. Pulmonary: Effort: Pulmonary effort is normal. Breath sounds: Normal breath sounds. Lymphadenopathy: Cervical: Cervical adenopathy present. Skin: General: Skin is warm and dry. Neurological: Mental Status: She is alert. Assessment and Plan ASSESSMENT/PLAN: 1. URI, acute - ICD9: 465.9, ICD10: J06.9 (primary diagnosis) - Discussed viral etiology and rationale for treatment. - Symptomatic treatment with prn analgesia - Supportive care with fluids and rest -Clines viral swab 2. Sore throat - ICD9: 462, ICD10: J02.9 - suspect viral - Group A strep molecular testing negative - Discussed supportive care treatment with fluids, rest and analgesia. - The patient may also use warm salt water gargles, throat lozenges and/or OTC throat spray as needed. - STREP A MOLECULAR (POC) Diagnosis and treatment plan were discussed and questions were answered to the patient's satisfaction. Pt acknowledged understanding of concepts and follow up plan. Specific signs and symptoms that would indicate the need for higher level of care were discussed in detail warranting prompt ER evaluation. PORSHA Ge documented in this encounter [facility] 12-07-2023 Note HNO ID: [id number] Author: ESTHER LOYOLA APRN.NANCY Service: ? Author Type: Nurse Practitioner Type: Progress Notes Filed: 12/07/2023 10:10 Note Text: Patient triaged at [facility]. Here today with dizziness for 3 years, seen by pcp for this multiple times. Seems to be bad lately. No s/s during triage. She has an appointment on Friday with her pcp, I advised to keep that appointment. If s/s worsen go to ER. Patient in no apparent distress at time of triage. [facility] 12-07-2023 History of Presen t illness Narrative Patient triaged at [facility]. Here today with dizziness for 3 years, seen by pcp for this multiple times. Seems to be bad lately. No s/s during triage. She has an appointment on Friday with her pcp, I advised to keep that appointment. If s/s worsen go to ER. Patient in no apparent distress at time of triage. documented in this encounter [facility] 12-07-2023 Telephone encounter Note Reason for call: Dizziness-Vertigo Outcome: Advised to SEE PCP WITHIN 24 HOURS. Patient verbalized understanding and is agreeable to the plan. GO TO THE EMERGENCY ROOM OR CALL 911 IF: * You develop any new symptoms * Your condition worsens * You are concerned or anxious about your condition for any other reason. If you have any questions, you can call Nurse heating and refrigeration inspector back. Reason for Disposition [1] MODERATE dizziness (e.g., vertigo; feels very unsteady, interferes with normal activities) AND [2] has NOT been evaluated by doctor (or CAN MACHINE OPERATOR/PA) for this Answer Assessment - Initial Assessment Questions 1. DESCRIPTION: Patient states, dizziness comes out of nowhere, room spinning, body feels heavy, and she feels like she is unsteady, but no symptoms currently 2. VERTIGO: Patient states, she feels herself, and the room is spinning, and tilting 3. LIGHTHEADED: Patient states, she feels somewhat faint, woozy and weak upon standing 4. SEVERITY: Patient states, intermittently severe within the last 3 days, but patient is not currently having any symptoms 5. ONSET: Ongoing since 3 years ago, and progressively got worse within the last 3 days 6. AGGRAVATING FACTORS: Patient states, standing makes it worse, but had a episode on 12/04/2023, while sitting she became dizzy 7. CAUSE: Patient states, she spoke with her PCP a year ago, and wore a Holter monitor, and nothing diagnosed, and then she was placed on allergy medication 8. RECURRENT SYMPTOM: Patient states, this has been ongoing for 3 years, and progressively getting worse 9. OTHER SYMPTOMS: Patient states, yesterday 12/06/2023, her legs felt weak when she was walking a lot, and felt unsteady 10. : Patient denies , last menstrual cycle two weeks ago Protocols used: Dizziness - Nhespxg-HHJGA-DR [facility] 12-07-2023 Miscellaneous Notes Reason for call: Dizziness-Vertigo Outcome: Advised to SEE PCP WITHIN 24 HOURS. Patient verbalized understanding and is agreeable to the plan. GO TO THE EMERGENCY ROOM OR CALL 911 IF: * You develop any new symptoms * Your condition worsens * You are concerned or anxious about your condition for any other reason. If you have any questions, you can call Nurse heating and refrigeration inspector back. Reason for Disposition [1] MODERATE dizziness (e.g., vertigo; feels very unsteady, interferes with normal activities) AND [2] has NOT been evaluated by doctor (or CAN MACHINE OPERATOR/PA) for this Answer Assessment - Initial Assessment Questions 1. DESCRIPTION: Patient states, dizziness comes out of nowhere, room spinning, body feels heavy, and she feels like she is unsteady, but no symptoms currently 2. VERTIGO: Patient states, she feels herself, and the room is spinning, and tilting 3. LIGHTHEADED: Patient states, she feels somewhat faint, woozy and weak upon standing 4. SEVERITY: Patient states, intermittently severe within the last 3 days, but patient is not currently having any symptoms 5. ONSET: Ongoing since 3 years ago, and progressively got worse within the last 3 days 6. AGGRAVATING FACTORS: Patient states, standing makes it worse, but had a episode on 12/04/2023, while sitting she became dizzy 7. CAUSE: Patient states, she spoke with her PCP a year ago, and wore a Holter monitor, and nothing diagnosed, and then she was placed on allergy medication 8. RECURRENT SYMPTOM: Patient states, this has been ongoing for 3 years, and progressively getting worse 9. OTHER SYMPTOMS: Patient states, yesterday 12/06/2023, her legs felt weak when she was walking a lot, and felt unsteady 10. : Patient denies , last menstrual cycle two weeks ago Protocols used: Dizziness - [id number] documented in this encounter [facility] 06-05-2023 History of Presen t illness Narrative This note was created using [employer]. Subjective Hoa Sofia is a 27 year old female. 27 year old female with PMH RA presents for illness. 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 No fisher weir was used. Sore Throat This is a new problem. The current episode started today. The problem has been unchanged. Neither side of throat is experiencing more pain than the other. There has been no fever. The pain is at a severity of 5/10. The pain is moderate. Associated symptoms include congestion, ear pain, headaches and swollen glands. Pertinent negatives include no abdominal pain, coughing, diarrhea, drooling, ear discharge, hoarse voice, plugged ear sensation, neck pain, shortness of breath, stridor, trouble swallowing or vomiting. She has had exposure to strep. She has had no exposure to mono. She has tried acetaminophen for the symptoms. The treatment provided mild relief. 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 folic acid 1 mg tablet Take 1 tablet by mouth once daily. (Patient not taking: Reported on 06/05/2023) hydroxychloroquine (PLAQUENIL) 200 mg tablet Take 1 tablet by mouth twice daily. (Patient not taking: Reported on 06/05/2023) methotrexate 2.5 mg tablet Take 8 tablets by mouth once each week. (Patient not taking: Reported on 06/05/2023) hydroxychloroquine (PLAQUENIL) 200 mg tablet Take 200 mg by mouth twice daily. (Patient not taking: Reported on 06/05/2023) lisdexamfetamine (VYVANSE) 30 mg capsule Take 40 mg by mouth once daily. (Patient not taking: Reported on 06/05/2023) FAMILY HISTORY Problem Relation Age of Onset Diabetes Maternal Grandmother Heart Maternal Grandfather Hypertension Maternal Grandmother Social History Tobacco Use Smoking status: Never Substance Use Topics Alcohol use: No Review of Systems Constitutional: Positive for chills, fatigue and fever. Negative for activity change and appetite change. HENT: Positive for congestion, ear pain and sore throat. Negative for drooling, ear discharge, hoarse voice and trouble swallowing. Eyes: Negative for photophobia, pain, discharge, redness, itching and visual disturbance. Respiratory: Negative for cough, shortness of breath and stridor. Cardiovascular: Negative for chest pain, palpitations and leg swelling. Gastrointestinal: Negative for abdominal pain, diarrhea and vomiting. Musculoskeletal: Positive for myalgias. Negative for neck pain. Skin: Negative for color change, pallor, rash and wound. Allergic/Immunologic: Positive for immunocompromised state. Negative for environmental allergies and food allergies. Neurological: Positive for headaches. Negative for dizziness and facial asymmetry. Hematological: Negative for adenopathy. Does not bruise/bleed easily. Psychiatric/Behavioral: Negative for agitation and behavioral problems. Objective BP 125/80 Pulse 99 Temp 36.6 C (97.9 F) Resp 18 Wt 68.9 kg (152 lb) SpO2 100% BMI 26.93 kg/m Physical Exam Vitals and nursing note reviewed. Constitutional: General: She is not in acute distress. Appearance: Normal appearance. She is normal weight. She is not ill-appearing, toxic-appearing or diaphoretic. HENT: Head: Normocephalic and atraumatic. Right Ear: Ear canal and external ear normal. Left Ear: Ear canal and external ear normal. Nose: Nose normal. No congestion or rhinorrhea. Mouth/Throat: Mouth: Mucous membranes are moist. Pharynx: Posterior oropharyngeal erythema (1 + enlarged bilatearl tonsils. Uvula midline Handling secretions) present. No oropharyngeal exudate. Eyes: General: Right eye: No discharge. Left eye: No discharge. Extraocular Movements: Extraocular movements intact. Conjunctiva/sclera: Conjunctivae normal. Pupils: Pupils are equal, round, and reactive to light. Cardiovascular: Rate and Rhythm: Normal rate and regular rhythm. Pulses: Normal pulses. Heart sounds: Normal heart sounds. No murmur heard. No friction rub. Pulmonary: Effort: Pulmonary effort is normal. No respiratory distress. Breath sounds: Normal breath sounds. No stridor. No wheezing, rhonchi or rales. Chest: Chest wall: No tenderness. Abdominal: General: Abdomen is flat. There is no distension. Palpations: Abdomen is soft. There is no mass. Tenderness: There is no abdominal tenderness. There is no right CVA tenderness, left CVA tenderness, guarding or rebound. Hernia: No hernia is present. Musculoskeletal: General: No swelling, tenderness, deformity or signs of injury. Normal range of motion. Cervical back: Normal range of motion and neck supple. No rigidity. Right lower leg: No edema. Left lower leg: No edema. Lymphadenopathy: Cervical: Cervical adenopathy present. Skin: General: Skin is warm and dry. Capillary Refill: Capillary refill takes less than 2 seconds. Coloration: Skin is not jaundiced or pale. Findings: No bruising, erythema, lesion or rash. Neurological: General: No focal deficit present. Mental Status: She is alert and oriented to person, place, and time. Cranial Nerves: No cranial nerve deficit. Sensory: No sensory deficit. Motor: No weakness. Coordination: Coordination normal. Gait: Gait normal. Psychiatric: Mood and Affect: Mood normal. Behavior: Behavior normal. Thought Content: Thought content normal. Judgment: Judgment normal. Assessment and Plan ASSESSMENT/PLAN: 1. URI, acute - ICD9: 465.9, ICD10: J06.9 X one day No red flags - Discussed viral etiology and rationale for treatment. - Group A strep molecular testing negative - Symptomatic treatment with prn analgesia - Supportive care with fluids and rest - The patient may also use OTC cough and cold meds as needed, warm salt water gargles, throat lozenges and/or OTC throat spray as needed, and nasal saline gtts and suction prn. - Follow up in 3-5 days if symptoms persist or sooner if worsening of symptoms - Declines COVID/FLU testing - STREP A MOLECULAR (POC) Marleni Mir APRN.WAREHOUSE OPERATIONS ASSOCIATE documented in this encounter [facility] 12-14-2022 History of Presen t illness Narrative [facility] TRIAGE NOTE: Hoa Sofia is a 27 year old female who presents with stabbing abdominal pain since last night. States pain radiates from epigastric to pelvic area. She rates pain 8/10. She has tenderness if she touches her abdomen. She is triaged to the emergency room for further evaluation and treatment. Report sent to [facility] via ER [facility]. Eveline Razo APRN.WAREHOUSE OPERATIONS ASSOCIATE documented in this encounter [facility] Evaluation + Plan note Future Appointments Appointment Date:10/21/2024 11:15:00 AM Scheduled Provider:DIOGENES AVENDAÑO MD Location:[facility] Appointment Type:PC OV Follow Up Future Scheduled TestsMRI Brain w/o Contrast 01/01/24 [facility] Evaluation note No assessment inform ation available [facility] Work Phone: Evaluation note Diagnosis Epigastric pain- Primary Abdominal pain, epigastric [facility] Diagnosis URI, acute- Primary Acute upper respiratory infections of unspecified site [facility] Diagnosis Dizziness- Primary Dizziness and giddiness documented in this encounter [facility] note* Diagnosis URI, acute- Primary Acute upper respiratory infections of unspecified site Sore throat Acute pharyngitis documented in this encounter [facility] course Narrative No data available for this section [facility] Hospital Discharge instructions Additional Instructions Please follow-up outpatient.[facility] Work Phone: Hospital Discharge instructions No data available for this section [facility] Progress note No data available for this section [facility] Reason for referral (narrative)No reason for referral information availableWAultman [facility] Work Phone: Chief Complaint and Reason for Visit Chief Complaint ABD PAIN Chief Complaint Admit Date Dizziness and giddiness November 03, 2024 12:24pm Advance Directives No Advanced Directives Records Found Advance Directive Response Recorded Date/ Time Living Will No December 14 11:16am Power of Platinum Smith No December 14 023 11:16am Summary Purpose Family History No Family History Records FoundNo Family History Records Found No data available for this section No Family History Records FoundNo Family History Records Found Additional Source Comments Care Teams (unrecognized sec tion and content) Team Status: Inactive Member Role Status Dates Dr. Surinder Camilo DO Emergency Provider Active Team Status: Active Member Role/Relationship Status Dates DIOGENES AVENDAÑO Primary Care Provider Active Team Status: Inactive Member Role/Relationship Status Dates Dr. Ray Anderson MD Attending Provider Activ e Start: November 03, 2024 End: November 03, 2024 Dr. Ray Anderson MD Referring Provider Activ e Start: November 03, 2024 End: November 03, 2024 KATERYNA SHETTY Primary Care Provider Active Start : November 03, 2024 End: November 03, 2024 Goals (unrecognized section and content) Goals may be documented in a n alternate section No data available for this sectionGoals may be documented in an alternate section Source Comments (unrecognize d section and content) In the event this informatio n is protected by the Federal Confidentiality of Alcohol and Drug Abuse Patient Records regulations: The Federal rules restrict any use of the information to criminally investigate or prosecute any alcohol or drug abuse patient.[facility] the event this information is protected by the Federal Confidentiality of Alcohol and Drug Abuse Patient Records regulations: The Federal rules restrict any use of the information to criminally investigate or prosecute any alcohol or drug abuse patient.[facility] the event this information is protected by the Federal Confidentiality of Alcohol and Drug Abuse Patient Records regulations: The Federal rules restrict any use of the information to criminally investigate or prosecute any alcohol or drug abuse patient.[facility] the event this information is protected by the Federal Confidentiality of Alcohol and Drug Abuse Patient Records regulations: The Federal rules restrict any use of the information to criminally investigate or prosecute any alcohol or drug abuse patient.[facility] the event this information is protected by the Federal Confidentiality of Alcohol and Drug Abuse Patient Records regulations: The Federal rules restrict any use of the information to criminally investigate or prosecute any alcohol or drug abuse patient.[facility] Reason for Visit (unrecogniz ed section and content) Reason Comments Sore Throat Bodyaches x this AM Reason Comments Dizziness Reason Comments Cough Runny nose, sneezing , fever, chest congestion, left ear pain. Sore throat, UP x 4 days INFORMATION SOURCE (unrecogn ized section and content) DATE CREATED AUTHOR 12/26/2023 [facility] ([place]) DATE CREATED AUTHOR AUTHOR'S ORGANIZ ATION 06/14/2024 [facility] DATE CREATED AUTHOR AUTHOR'S ORGANIZ ATION 10/07/2024 [facility] DATE CREATED AUTHOR AUTHOR'S ORGANIZ ATION 11/10/2024 [facility] FOR RECORDS PERTAINING TO PATIENTS WHO ARE OR HAVE BEEN ENROLLED IN A CHEMICAL DEPENDENCY/SUBSTANCEABUSE PROGRAM, SOME INFORMATION MAY BE OMITTED. This clinical summary was aggregated from multiple sources. Caution should be exercised in using it in the provision of clinical care. This summary normalizes information from multiple sources, and as a consequence, information in this document may materially change the coding, format and clinical context of patient data. In addition, data may be omitted in some cases. CLINICAL DECISIONS SHOULD BE BASED ON THE PRIMARY CLINICAL RECORDS. [facility] [employer] [facility]. provides no warranty or guarantee of the accuracy or completeness of information in this document.
== END 2024-11-27 04:30 | disposition home or self-care (01) ==
LOC: ED 04:27
PROVIDERS: Emergency Provider Emergency Medicine; Visit Provider Emergency Medicine
DX: R11.2 Nausea with vomiting, unspecified (principal); M06.9 Rheumatoid arthritis, unspecified; Z79.899 Other long term (current) drug therapy
CPT/HCPCS: 99282